=== PATIENT | female | born 1955 | race Caucasian/White ===

== ENCOUNTER 2020-04-12 13:39 | Outpatient (REF) | payer MEDICARE, SELFPAY ==
--- NOTE | 2020-04-12 | MM_ITS ---
EXAMINATION: BONE DENSITOMETRY CLINICAL INDICATION: Encounter for screening for osteoporosis. COMPARISON: Baseline BD dated 12/07/2008. TECHNIQUE: Using a [employer] DXA system (software version: 14.10) manufactured by [employer], dual-energy x-ray absorptiometry was performed of the lumbar spine and left hip. The images are of good technical quality. Summary results are attached. FINDINGS: AP SPINE L1-L2 (excluding L3 and L4): The data of L1-L4 has been changed to exclude the L3 and L4 vertebral bodies, because degenerative sclerosis at these levels may cause overestimation of lumbar spine density. Current: BMD 1.137 g/cm2, Z-score 0.9, T-score -0.2, normal, 3.3% decrease from baseline (<5% change is not significant). Baseline: BMD 1.176 g/cm2. LEFT FEMUR, NECK: Current: BMD 0.888 g/cm2, Z-score 0.1, T-score -1.1, osteopenia. Baseline: BMD 0.986 g/cm2. LEFT FEMUR, TOTAL: Current: BMD 1.007 g/cm2, Z-score 0.9, T-score 0.0, normal, 2.4% decrease from baseline (<5% change is not significant). Baseline: BMD 1.032 g/cm2. IDENTIFIED RISK FACTORS: Low calcium intake. Hysterectomy. Menopause. HISTORY OF FRACTURE: None listed. MEDICATIONS: Calcium supplement and/or multivitamin. Vitamin D. MM/XR DEXA axial skeleton IMPRESSION: 1. DIAGNOSIS: Osteopenia based on the lowest T-score value of -1.1 in the femoral neck applying World Health Organization criteria. 2. 10-YEAR FRACTURE RISK PREDICTION, FRAX: Major osteoporotic fracture (clinical spine, forearm, hip or shoulder) 8.1%. Hip fracture 0.7%. 3. Treatment Recommendations: NOF guidelines recommend consideration for treatment in postmenopausal women and men age 50 and older presenting with the following: -A hip or vertebral (clinical or morphometric) fracture. -T-score less than or equal to -2.5 at the femoral neck or spine after appropriate evaluation to exclude secondary causes. -Low bone mass at the hip or spine and a 10-year fracture probability by FRAX of greater than or equal to 3% for hip fracture or greater than or equal to 20% for major osteoporotic fracture based on the [place] adapted WHO algorithm. 4. Other Recommendations: All treatment decisions require clinical judgment and consideration of individual patient factors, including patient preferences, comorbidities, previous drug use, risk factors not captured in the FRAX model (e.g. frailty, falls, vitamin D deficiency, increased bone turnover, interval significant decline in bone density) and possible under or overestimation of fracture risk by FRAX. Additional medical evaluation for secondary cause of low bone mineral density may be appropriate. FUTURE SCAN RECOMMENDATION: People with diagnosed cases of osteoporosis or at high risk for fracture should have regular bone mineral density tests. For patients eligible for Medicare, routine testing is allowed once every 2 years. The testing frequency can be increased to one year for patients who have rapidly progressing disease, those who are receiving or discontinuing medical therapy to restore bone mass, or have additional risk factors.
== END 2020-04-12 13:40 | disposition home or self-care (01) ==
LOC: HO.MAMMO 13:39
PROVIDERS: Visit Provider Internal Medicine Medical Oncology
DX: Z13.820 Encounter for screening for osteoporosis (principal); M85.80 Other specified disorders of bone density and structure, unspecified site; Z78.0 Asymptomatic menopausal state; Z79.899 Other long term (current) drug therapy; Z98.890 Other specified postprocedural states
CPT/HCPCS: 77080

== ENCOUNTER 2020-04-19 16:43 | Outpatient (REF) | payer MEDICARE, SELFPAY ==
--- NOTE | 2020-04-19 | MM_ITS ---
EXAMINATION: MM SCREENING DIGITAL BREAST TOMOSYNTHESIS, BILATERAL CLINICAL INFORMATION: Screening. Asymptomatic. The lifetime risk of breast cancer based on the Tyrer-Cuzick Model is 12.8%. COMPARISON: Mammography: January 18, 2019 and studies dating back to October 21, 2010 TECHNIQUE: Digital breast tomosynthesis is performed in both the craniocaudal and mediolateral oblique views along with computer-aided detection (CAD). Synthesized 2D images are generated from the tomosynthesis. FINDINGS: The breasts are almost entirely fatty (ACR BI-RADS breast composition Category a). There are no significant masses, abnormal calcifications, or other abnormalities. MM/MM tomosynthesis screening BI IMPRESSION: There are no significant changes from prior study. ASSESSMENT: BI-RADS 1: Negative RECOMMENDATION: Routine annual mammography screening. This patient's information was entered into a reminder system with a target due date for their next mammogram.
== END 2020-04-19 16:44 | disposition home or self-care (01) ==
LOC: HO.MAMMO 16:43
PROVIDERS: PCP Family Medicine; Visit Provider Family Medicine
DX: Z12.31 Encounter for screening mammogram for malignant neoplasm of breast (principal)
CPT/HCPCS: 77063; 77067

== ENCOUNTER 2020-06-14 14:56 | Outpatient (REF) | payer MEDICARE, SELFPAY ==
[2020-06-14 15:50] LABS: Cholesterol 267 mg/dL; HDL Cholesterol 81 mg/dL; LDL Cholesterol Calculated 159 mg/dl; Triglycerides 139 mg/dL
== END 2020-06-14 14:57 | disposition home or self-care (01) ==
LOC: HO.LAB 14:56
PROVIDERS: PCP Family Medicine; Visit Provider Family Medicine
DX: E78.00 Pure hypercholesterolemia, unspecified (principal)
CPT/HCPCS: 80061

== ENCOUNTER 2020-06-18 12:25 | Outpatient (REF) | payer MEDICARE, SELFPAY ==
[2020-06-18 13:57] LABS: MANUAL DIFF FLAG NO
[2020-06-18 14:02] LABS: Basophils Percent Auto 0.4 % (0-2); Eosinophils Absolute Auto 0.1 X10*3/uL (0.0-0.4); Eosinophils Percent Auto 1.7 % (0-4); Hematocrit 43.5 % (37-47); Hemoglobin 14.2 g/dl (12.0-16.0); Imm Gran Abs Auto 0.01 X10*3/uL (0.00-0.03); Imm Gran Pct Auto 0.2 % (0.0-0.4); Lymphocytes Absolute Auto 1.8 X10*3/uL (1.2-4.9); Lymphocytes Percent Auto 33.2 % (20-40); Mean Corpuscular HGB Conc 32.6 g/dl (31.0-35.0); Mean Corpuscular Hemoglobin 32.6 pg (27.0-33.0); Mean Platelet Volume 9.3 fL (9.4-12.3); Monocytes Absolute Auto 0.5 X10*3/uL (0.1-1.2); Monocytes Percent Auto 9.8 % (2-11); Neutrophils Percent Auto 54.7 % (45-73); Platelet Count 227 X10*3/uL (160-400); Red Blood Count 4.35 X10*6/uL (4.20-5.50); Red Cell Distribution Width 11.8 % (11.0-16.0); White Blood Count 5.4 X10*3/uL (4.8-10.8)
[2020-06-18 14:37] LABS: Alanine Aminotransferase 27 U/L (0-31); Albumin Level 4.7 g/dL (3.5-5.0); Alkaline Phosphatase 77 U/L (39-117); Anion Gap 14 (12-20); Aspartate Amino Transferase 23 U/L (5-31); Bilirubin Total 1.5 mg/dL (0.0-1.0); Blood Urea Nitrogen 13 mg/dL (9-16); C Reactive Protein 0.33 mg/dL (< or = 0.50); Calcium 9.5 mg/dL (8.4-10.2); Carbon Dioxide 29 mmol/L (22-29); Chloride 103 mmol/L (96-108); Cholesterol 300 mg/dL; Estimated Glomerular Filt Rate > 60; Glucose Random 89 mg/dL (60-115); HDL Cholesterol 82 mg/dL; LDL Cholesterol Calculated 190 mg/dl; Potassium 4.3 mmol/l (3.3-5.1); Sodium 142 mmol/L (135-145); Total Protein 7.4 g/dL (6.5-8.0); Triglycerides 140 mg/dL
[2020-06-18 14:58] LABS: TSH reflex Free T4 1.31 mIU/mL (0.32-4.0)
[2020-06-18 15:58] LABS: Erythrocyte Sedimentation Rate 16 MM/HR (0-20)
== END 2020-06-18 12:26 | disposition home or self-care (01) ==
LOC: HO.WFDLDS 12:25
PROVIDERS: Visit Provider Family Medicine
DX: R53.83 Other fatigue (principal); Z00.00 Encounter for general adult medical examination without abnormal findings
CPT/HCPCS: 36415; 80053; 80061; 84443; 85025; 85652; 86140

== ENCOUNTER 2020-10-09 07:55 | Outpatient (REF) | payer MEDICARE, SELFPAY ==
--- NOTE | ~2020-10-09 | XR_ITS ---
EXAMINATION: 1. STANDING AP VIEWS OF THE BILATERAL KNEES 2. 2 VIEWS OF THE LEFT KNEE CLINICAL INFORMATION: Bilateral knee pain COMPARISON: Bilateral knee radiographs March 11, 2021 TECHNIQUE: Standing AP views of both knees were obtained. 2 additional views of the left knee were obtained. FINDINGS: No fracture or dislocation of the left knee. There is a small suprapatellar joint effusion of the left knee. Mildly decreased medial joint space height of the left knee. Tricompartmental marginal osteophytes of the left knee are noted. Medial and lateral joint spaces of the right knee are maintained although prominent osteophytes are noted involving primarily the lateral right knee joint compartment. XR/XR knee standing BI IMPRESSION: -Small suprapatellar joint effusion of the left knee. -[id number] degenerative changes of the left knee with only mild degenerative changes of the right knee.
--- NOTE | ~2020-10-09 | XR_ITS ---
EXAMINATION: 1. STANDING AP VIEWS OF THE BILATERAL KNEES 2. 2 VIEWS OF THE LEFT KNEE CLINICAL INFORMATION: Bilateral knee pain COMPARISON: Bilateral knee radiographs March 11, 2021 TECHNIQUE: Standing AP views of both knees were obtained. 2 additional views of the left knee were obtained. FINDINGS: No fracture or dislocation of the left knee. There is a small suprapatellar joint effusion of the left knee. Mildly decreased medial joint space height of the left knee. Tricompartmental marginal osteophytes of the left knee are noted. Medial and lateral joint spaces of the right knee are maintained although prominent osteophytes are noted involving primarily the lateral right knee joint compartment. XR/XR knee LT 2V IMPRESSION: -Small suprapatellar joint effusion of the left knee. -[id number]-[id number] degenerative changes of the left knee with only mild degenerative changes of the right knee.
== END 2020-10-09 07:56 | disposition home or self-care (01) ==
LOC: HO.HOSX 07:55
PROVIDERS: Visit Provider Orthopaedic Surgery
DX: M17.12 Unilateral primary osteoarthritis, left knee (principal); M17.11 Unilateral primary osteoarthritis, right knee
CPT/HCPCS: 20610; 73560; 73565; 99212; J1040

== ENCOUNTER 2021-02-21 10:00 | Outpatient (REF) | payer MEDICARE, SELFPAY ==
[2021-02-21 11:40] LABS: Alanine Aminotransferase 23 U/L (0-31); Albumin Level 4.3 g/dL (3.5-5.0); Alkaline Phosphatase 74 U/L (39-117); Anion Gap 12 (12-20); Aspartate Amino Transferase 19 U/L (5-31); Bilirubin Total 1.5 mg/dL (0.0-1.0); Blood Urea Nitrogen 12 mg/dL (9-16); Calcium 9.3 mg/dL (8.4-10.2); Carbon Dioxide 29 mmol/L (22-29); Chloride 105 mmol/L (96-108); Cholesterol 250 mg/dL; Estimated Glomerular Filt Rate > 60; Glucose Fasting 90 mg/dL (60-99); HDL Cholesterol 76 mg/dL; LDL Cholesterol Calculated 157 mg/dl; Potassium 4.5 mmol/L (3.3-5.1); Sodium 141 mmol/L (135-145); Total Protein 6.8 g/dL (6.5-8.0); Triglycerides 89 mg/dL
[2021-02-21 12:05] LABS: Ferritin 138 ng/mL (10-250)
== END 2021-02-21 10:01 | disposition home or self-care (01) ==
LOC: HO.WFDLDS 10:00
PROVIDERS: PCP Family Medicine; Visit Provider Family Medicine
DX: Z00.00 Encounter for general adult medical examination without abnormal findings (principal); M62.838 Other muscle spasm
CPT/HCPCS: 36415; 80053; 80061; 82728

== ENCOUNTER 2021-06-17 10:18 | Outpatient (REF) | payer MEDICARE, SELFPAY ==
[2021-06-17 14:00] LABS: MANUAL DIFF FLAG NO
[2021-06-17 14:08] LABS: Basophils Percent Auto 0.6 % (0-2); Eosinophils Absolute Auto 0.2 X10*3/uL (0.0-0.4); Eosinophils Percent Auto 3.8 % (0-4); Hematocrit 42.3 % (37.0-47.0); Hemoglobin 14.3 g/dl (12.0-16.0); Imm Gran Abs Auto 0.01 X10*3/uL (0.00-0.03); Imm Gran Pct Auto 0.2 % (0.0-0.4); Lymphocytes Absolute Auto 1.6 X10*3/uL (1.2-4.9); Lymphocytes Percent Auto 32.5 % (20-40); Mean Corpuscular HGB Conc 33.8 g/dl (31.0-35.0); Mean Corpuscular Hemoglobin 32.8 pg (27.0-33.0); Mean Platelet Volume 9.7 fL (9.4-12.3); Monocytes Absolute Auto 0.6 X10*3/uL (0.1-1.2); Neutrophils Absolute Auto 2.6 x10*3/uL (2.0-8.3); Neutrophils Percent Auto 51.9 % (45-73); Platelet Count 222 X10*3/uL (160-400); Red Blood Count 4.36 X10*6/uL (4.20-5.50); Red Cell Distribution Width 11.9 % (11.0-16.0)
[2021-06-17 14:34] LABS: Alanine Aminotransferase 28 U/L (0-31); Albumin Level 4.4 g/dL (3.5-5.0); Alkaline Phosphatase 76 U/L (39-117); Anion Gap 11 (12-20); Aspartate Amino Transferase 22 U/L (5-31); Blood Urea Nitrogen 13 mg/dL (9-16); C Reactive Protein 0.19 mg/dL (< or = 0.50); Calcium 9.8 mg/dL (8.4-10.2); Carbon Dioxide 29 mmol/L (22-29); Chloride 104 mmol/L (96-108); Cholesterol 289 mg/dL; Estimated Glomerular Filt Rate > 60; Glucose Fasting 90 mg/dL (60-99); HDL Cholesterol 80 mg/dL; LDL Cholesterol Calculated 183 mg/dl; Potassium 4.4 mmol/L (3.3-5.1); Sodium 140 mmol/L (135-145); Total Protein 7.2 g/dL (6.5-8.0); Triglycerides 132 mg/dL
[2021-06-17 14:41] LABS: Rheumatoid Factor < 15.0 IU/mL (<15.0)
[2021-06-17 14:54] LABS: TSH reflex Free T4 1.69 uIU/mL (0.32-4.0); Vitamin D 25-OH Total 27.4 ng/mL (>30)
[2021-06-17 15:22] LABS: Erythrocyte Sedimentation Rate 12 MM/HR (0-20)
[2021-06-18 21:57] LABS: Anti Nuclear Antibody Screen POSITIVE (NEGATIVE)
== END 2021-06-17 10:19 | disposition home or self-care (01) ==
LOC: HO.WFDLDS 10:18
PROVIDERS: Visit Provider Family Medicine
DX: Z00.00 Encounter for general adult medical examination without abnormal findings (principal); R53.83 Other fatigue; E78.00 Pure hypercholesterolemia, unspecified; M62.838 Other muscle spasm; M79.10 Myalgia, unspecified site; E55.9 Vitamin D deficiency, unspecified; M25.561 Pain in right knee; M25.562 Pain in left knee
CPT/HCPCS: 36415; 80053; 80061; 82306; 84443; 85025; 85652; 86038; 86039; 86140; 86431

== ENCOUNTER 2021-08-14 09:45 | Outpatient (REF) | payer MEDICARE, SELFPAY ==
[2021-08-15 08:36] LABS: Lyme Abs Screen <0.90 index
== END 2021-08-14 09:46 | disposition home or self-care (01) ==
LOC: HO.WFDLDS 09:45
PROVIDERS: Visit Provider Family Medicine
DX: M79.10 Myalgia, unspecified site (principal)
CPT/HCPCS: 36415; 86617; 86618

== ENCOUNTER 2021-09-11 15:01 | Outpatient (REF) | payer MEDICARE, SELFPAY ==
--- NOTE | ~2021-09-11 | MM_ITS ---
EXAMINATION: MM SCREENING DIGITAL BREAST TOMOSYNTHESIS, BILATERAL CLINICAL INFORMATION: Screening. Asymptomatic. The lifetime risk of breast cancer based on the Tyrer-Cuzick Model is 13%. COMPARISON: Mammography: 04/19/2020, 01/18/2019, 12/10/2016 TECHNIQUE: Digital breast tomosynthesis is performed in both the craniocaudal and mediolateral oblique views along with computer-aided detection (CAD). Synthesized 2D images are generated from the tomosynthesis. FINDINGS: The breasts are almost entirely fatty (ACR BI-RADS breast composition Category a). There are no significant masses, abnormal calcifications, or other abnormalities. Background stromal and fibroglandular densities are stable. The axilla and skin contours are unremarkable. MM/MM tomosynthesis screening BI IMPRESSION: No mammographic evidence of malignancy. ASSESSMENT: BI-RADS 1: Negative RECOMMENDATION: Routine annual mammography screening. This patient's information was entered into a reminder system with a target due date for their next mammogram.
== END 2021-09-11 15:02 | disposition home or self-care (01) ==
LOC: HO.MAMMO 15:01
PROVIDERS: Visit Provider Family Medicine
DX: Z12.31 Encounter for screening mammogram for malignant neoplasm of breast (principal)
CPT/HCPCS: 77063; 77067

== ENCOUNTER 2021-10-18 11:38 | Outpatient (REF) | payer MEDICARE, SELFPAY ==
--- NOTE | ~2021-10-18 | XR_ITS ---
EXAMINATION: XR CHEST CLINICAL INFORMATION: Cough COMPARISON: Previous chest x-ray July 2017 TECHNIQUE: 2 views of the chest were obtained. FINDINGS: The cardiac and mediastinal contours are stable. The lungs are clear. There is no pleural effusion or pneumothorax. There are degenerative changes of the spine. XR/XR chest 2V IMPRESSION: No evidence for acute disease in the chest.
[2021-10-18 14:53] LABS: Influenza A PCR NEGATIVE (Negative); Influenza B PCR NEGATIVE (Negative); Resp Syncy Virus RNA Qual PCR NEGATIVE (Negative); SARS COV2 PCR INHOUSE NEGATIVE (Negative)
== END 2021-10-18 11:39 | disposition home or self-care (01) ==
LOC: HO.XRAY 11:38
PROVIDERS: PCP Family Medicine; Visit Provider Family Medicine
DX: Z20.822 Contact with and (suspected) exposure to COVID-19 (principal); R05.9 Cough, unspecified; R09.89 Other specified symptoms and signs involving the circulatory and respiratory systems
CPT/HCPCS: 0241U; 71046

== ENCOUNTER 2022-02-19 10:25 | Outpatient (REF) | payer MEDICARE, SELFPAY ==
[2022-02-19 12:04] LABS: Alanine Aminotransferase 23 U/L (0-31); Albumin Level 4.4 g/dL (3.5-5.0); Alkaline Phosphatase 76 U/L (39-117); Anion Gap 16 (12-20); Aspartate Amino Transferase 21 U/L (5-31); Bilirubin Total 1.2 mg/dL (0.0-1.0); Blood Urea Nitrogen 11 mg/dL (9-16); Calcium 9.5 mg/dL (8.4-10.2); Carbon Dioxide 27 mmol/L (22-29); Chloride 103 mmol/L (96-108); Cholesterol 276 mg/dL; Estimated Glomerular Filt Rate > 60; Glucose Random 89 mg/dL (60-115); HDL Cholesterol 82 mg/dL; LDL Cholesterol Calculated 173 mg/dl; Potassium 4.1 mmol/L (3.3-5.1); Sodium 142 mmol/L (135-145); Total Protein 7.1 g/dL (6.5-8.0); Triglycerides 107 mg/dL
== END 2022-02-19 10:26 | disposition home or self-care (01) ==
LOC: HO.WFDLDS 10:25
PROVIDERS: Visit Provider Family Medicine
DX: Z00.00 Encounter for general adult medical examination without abnormal findings (principal); E78.00 Pure hypercholesterolemia, unspecified
CPT/HCPCS: 36415; 80053; 80061

== ENCOUNTER 2022-04-16 08:59 | Outpatient (REF) | payer MEDICARE, SELFPAY ==
--- NOTE | ~2022-04-16 | MM_ITS ---
EXAMINATION: BONE DENSITOMETRY CLINICAL INDICATION: Screening for osteoporosis. COMPARISON: Previous BD dated 04/12/2020 and baseline BD dated 12/07/2008. TECHNIQUE: Using a [employer] DXA System (software version: 13.1) manufactured by [employer], dual-energy x-ray absorptiometry was performed of the lumbar spine and left hip. The images are of good technical quality. Summary results are attached. FINDINGS: AP SPINE L1-L4: Current: BMD 1.308 g/cm2, Z-score 2.1, T-score 1.1, normal, 0.2% increase from previous, 3.1% increase from baseline (<5% change is not significant). Prior: BMD 1.306 g/cm2. Baseline: BMD 1.269 g/cm2. LEFT FEMUR, NECK: Current: BMD 0.814 g/cm2, Z-score -0.4, T-score -1.6, osteopenia. Prior: BMD 0.888 g/cm2. Baseline: BMD 0.986 g/cm2. LEFT FEMUR, TOTAL: Current: BMD 0.882 g/cm2, Z-score -0.1, T-score -1.0, normal, 12.4% decrease from previous, 14.5% decrease from baseline (<5% change is not significant). Prior: BMD 1.007 g/cm2. Baseline: BMD 1.032 g/cm2. IDENTIFIED RISK FACTORS: Menopause, low calcium intake, hysterectomy, osteoporosis. HISTORY OF FRACTURE: None listed. MEDICATIONS: Vitamin D. MM/XR DEXA axial skeleton IMPRESSION: 1. DIAGNOSIS: Osteopenia based on the lowest T-score value of -1.6 in the femoral neck applying World Health Organization criteria. 2. 10-YEAR FRACTURE RISK PREDICTION, FRAX: Major osteoporotic fracture (clinical spine, forearm, hip or shoulder) 9.5%. Hip fracture 1.3%. 3. Treatment Recommendations: NOF guidelines recommend consideration for treatment in postmenopausal women and men age 50 and older presenting with the following: -A hip or vertebral (clinical or morphometric) fracture. -T-score less than or equal to -2.5 at the femoral neck or spine after appropriate evaluation to exclude secondary causes. -Low bone mass at the hip or spine and a 10-year fracture probability by FRAX of greater than or equal to 3% for hip fracture or greater than or equal to 20% for major osteoporotic fracture based on the [place] adapted WHO algorithm. 4. Other Recommendations: All treatment decisions require clinical judgment and consideration of individual patient factors, including patient preferences, comorbidities, previous drug use, risk factors not captured in the FRAX model (e.g. frailty, falls, vitamin D deficiency, increased bone turnover, interval significant decline in bone density) and possible under or overestimation of fracture risk by FRAX. Additional medical evaluation for secondary cause of low bone mineral density may be appropriate. FUTURE SCAN RECOMMENDATION: People with diagnosed cases of osteoporosis or at high risk for fracture should have regular bone mineral density tests. For patients eligible for Medicare, routine testing is allowed once every 2 years. The testing frequency can be increased to one year for patients who have rapidly progressing disease, those who are receiving or discontinuing medical therapy to restore bone mass, or have additional risk factors.
== END 2022-04-16 09:00 | disposition home or self-care (01) ==
LOC: HO.MAMMO 08:59
PROVIDERS: PCP Family Medicine; Visit Provider Family Medicine
DX: Z13.820 Encounter for screening for osteoporosis (principal); Z78.0 Asymptomatic menopausal state
CPT/HCPCS: 77080

== ENCOUNTER 2022-08-27 12:48 | Outpatient (REF) | payer MEDICARE, SELFPAY ==
--- NOTE | ~2022-08-27 | XR_ITS ---
EXAMINATION: XR CHEST CLINICAL INFORMATION: TB COMPARISON: 10/18/2021 TECHNIQUE: 2 views of the chest were obtained. FINDINGS: Clear lungs. No effusion or pneumothorax. Cardiomediastinal silhouette is within normal limits. No radiographic findings of tuberculosis. XR/XR chest 2V IMPRESSION: No radiographic findings of tuberculosis.
== END 2022-08-27 12:49 | disposition home or self-care (01) ==
LOC: HO.XRAY 12:48
PROVIDERS: PCP Family Medicine; Visit Provider Family Medicine
DX: Z11.1 Encounter for screening for respiratory tuberculosis (principal)
CPT/HCPCS: 71046

== ENCOUNTER 2022-10-20 14:57 | Outpatient (REF) | payer MEDICARE, SELFPAY ==
--- NOTE | ~2022-10-20 | MM_ITS ---
EXAMINATION: MM SCREENING DIGITAL BREAST TOMOSYNTHESIS, BILATERAL CLINICAL INFORMATION: Screening. Asymptomatic. Family history breast cancer, mother. The lifetime risk of breast cancer based on the Tyrer-Cuzick Model is 13%. COMPARISON: Mammography: 09/11/2021, 04/19/2020, 01/18/2019 TECHNIQUE: Digital breast tomosynthesis is performed in both the craniocaudal and mediolateral oblique views along with computer-aided detection (CAD). Synthesized 2D images are generated from the tomosynthesis. FINDINGS: The breasts are almost entirely fatty (ACR BI-RADS breast composition Category a). Parenchymal pattern is similar to prior studies. There is no developing density or architectural abnormality. The axilla and skin contours are unremarkable. No significant changes. There are no significant masses, abnormal calcifications, or other abnormalities. MM/MM tomosynthesis screening BI IMPRESSION: No mammographic evidence of malignancy. ASSESSMENT: BI-RADS 1: Negative RECOMMENDATION: Routine annual mammography screening. This patient's information was entered into a reminder system with a target due date for their next mammogram.
== END 2022-10-20 14:58 | disposition home or self-care (01) ==
LOC: HO.MAMMO 14:57
PROVIDERS: PCP Family Medicine; Visit Provider Family Medicine
DX: Z12.31 Encounter for screening mammogram for malignant neoplasm of breast (principal)
CPT/HCPCS: 77063; 77067

== ENCOUNTER 2022-10-21 14:00 | Outpatient (RCR) | payer MEDICARE, SELFPAY | END 2022-11-13 08:45 | disposition home or self-care (01) | LOC: HO.PT 14:00 | PROVIDERS: PCP Family Medicine; Visit Provider Internal Medicine Rheumatology | DX: M17.0 Bilateral primary osteoarthritis of knee (principal) | CPT/HCPCS: 97110; 97140; 97161 ==

== ENCOUNTER 2022-12-12 06:22 | Day surgery (SDC) | payer MEDICARE, SELFPAY ==
--- NOTE | 2022-12-11 11:44 | HO.ANESPROP2 ---
Documented by User: Yue Jeong NP 12/11/22 11:44 HPI - Anesthesia Eval Consult details Narrative: 67yo F for Colonoscopy PMFSH Active Problems Active Problems: All Active Problems (Updated 11/26/22 @ 11:13 by Nabeel Rodriguez) Hypertension (Acute) Screening examination for pulmonary tuberculosis (Acute) Abnormal lung sounds (Acute) Cough (Acute) Decreased hearing (Acute) Breast cancer screening by mammogram (Acute) Screening for colon cancer (Acute) Screening for cervical cancer (Acute) Adult general medical exam (Acute) Muscle pain (Acute) Elevated blood pressure reading (Acute) Bilateral knee pain (Acute) Muscle spasms of both lower extremities (Acute) Left knee pain (Acute) Primary osteoarthritis of left knee (Acute) Osteopenia (Acute) Hypercholesterolemia (Acute) Hamstring muscle strain (Acute) Fatigue (Acute) History of COVID-19 (Acute) Past Medical History Medical History (Updated 12/12/22 @ 06:58 by Meena Samaniego RN) Elevated cholesterol Fibromyalgia Osteoarthritis Surgical History Surgical History (Updated 12/12/22 @ 07:01 by Meena Samaniego RN) History of bladder surgery History of ear surgery History of knee surgery History of partial hysterectomy Hx of colonoscopy Social History Social History Housing: House Alcohol intake: current Alcohol intake frequency: holidays/special occasions only Patient Tobacco Use Status: Never used Tobacco e-Cigarette/Vaping Use: Never Used Second Hand Smoke Exposure: No Use of substances other than those prescribed or required for medical reasons: No Are you DNR?: No Advance Directives: No Advance Directives Information Provided: Yes service: No Current occupational status: 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 Cognitive needs: No Hearing needs: Yes (hearing aide) Vision needs: Yes (glasses) Meds Allergies Allergy/AdvReac Type Severity Reaction Status Date / Time Penicillins Allergy Mild UNKNOWN Verified 12/12/22 07:01 procaine [From Novocain] Allergy Mild HIVES/SWELL Verified 12/12/22 07:01 ING penicillin V Allergy Unknown Hives, Verified 12/12/22 07:01 swelling,fainting lidocaine [From Xylocaine] Allergy Unconscious Verified 12/12/22 07:03 Novocaine Allergy Mild Unconscious Uncoded 12/12/22 07:03 Home Medications Medication Instructions Recorded Confirmed Last Taken Type vitamin B complex (Super B-50 1 cap PO DAILY 06/18/20 12/12/22 Unknown History Complex capsule) glucosamine sulfate 500 mg tablet 500 mg PO DAILY 12/24/20 12/12/22 Unknown History (Glucosamine) meloxicam 7.5 mg tablet 7.5 mg PO DAILY 10/18/21 12/12/22 Unknown History cholecalciferol (vitamin D3) 10 10 mcg PO DAILY 11/26/22 12/12/22 Unknown History mcg (400 unit) capsule magnesium 200 mg tablet 400 mg PO DAILY 11/26/22 12/12/22 Unknown History sodium hyaluronate (viscosup) 10 mg intra-articular 12/12/22 12/12/22 Unknown History mg/mL(mw 2.4-3.6 million)intra-articular syringe (Euflexxa) Exam Exam Date and Time: December 11, 2022 1144 Assessment and Plan Assessment Anesthesia Assessment: Chart Reviewed Documented by User: Jany Gaston MD 12/12/22 08:04 [facility] Past Medical History Medical History (Updated 12/12/22 @ 06:58 by Meena Samaniego RN) Elevated cholesterol Fibromyalgia Osteoarthritis Family History Family history of problems with anesthesia: No Surgical History Surgical History (Updated 12/12/22 @ 07:01 by Meena Samaniego RN) History of bladder surgery History of ear surgery History of knee surgery History of partial hysterectomy Hx of colonoscopy History of Problems with Anesthesia: No Social History Social History Housing: House Alcohol intake: current Alcohol intake frequency: holidays/special occasions only Patient Tobacco Use Status: Never used Tobacco e-Cigarette/Vaping Use: Never Used Second Hand Smoke Exposure: No Use of substances other than those prescribed or required for medical reasons: No Are you DNR?: No Advance Directives: No Advance Directives Information Provided: Yes service: No Current occupational status: 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 Cognitive needs: No Hearing needs: Yes (hearing aide) Vision needs: Yes (glasses) Meds Allergies Allergy/AdvReac Type Severity Reaction Status Date / Time Penicillins Allergy Mild UNKNOWN Verified 12/12/22 07:01 procaine [From Novocain] Allergy Mild HIVES/SWELL Verified 12/12/22 07:01 ING penicillin V Allergy Unknown Hives, Verified 12/12/22 07:01 swelling,fainting lidocaine [From Xylocaine] Allergy Unconscious Verified 12/12/22 07:03 Novocaine Allergy Mild Unconscious Uncoded 12/12/22 07:03 Home Medications Medication Instructions Recorded Confirmed Last Taken Type vitamin B complex (Super B-50 1 cap PO DAILY 06/18/20 12/12/22 Unknown History Complex capsule) glucosamine sulfate 500 mg tablet 500 mg PO DAILY 12/24/20 12/12/22 Unknown History (Glucosamine) meloxicam 7.5 mg tablet 7.5 mg PO DAILY 10/18/21 12/12/22 Unknown History cholecalciferol (vitamin D3) 10 10 mcg PO DAILY 11/26/22 12/12/22 Unknown History mcg (400 unit) capsule magnesium 200 mg tablet 400 mg PO DAILY 11/26/22 12/12/22 Unknown History sodium hyaluronate (viscosup) 10 mg intra-articular 12/12/22 12/12/22 Unknown History mg/mL(mw 2.4-3.6 million)intra-articular syringe (Euflexxa) Exam Airway Mallampati Class: I TM Dist: >3cm Neck ROM: Full Loose/Missing/Broken Teeth: No Heart: rr Lungs: cta Assessment and Plan Assessment Anesthesia Assessment: Anesthesia Plan Discussed Final Anesthetic Review Family History of Problems with Anesthesia: No History of Problems with Anesthesia: No NPO: Yes ASA Class: II Final Preanesthetic Review: No Changes in Pt Med Stat, Meds/Allgs Chart Reviewed, Consent Obtained/Reviewed and Anes Risks/Benef Reviewed Patient Risk: Low Procedure Risk: Low Anesthetic Plan Anesthetic Plan: MAC: Disposition: Standard PACU
[2022-12-12 06:55] VITALS: BMI 29.6
[2022-12-12 07:14] VITALS: BP 125/73; PULSE 64; RESP 15; TEMP 36.7; O2SAT 97
[2022-12-12] MEDS: Lactated Ringers 1,000 ML 100 ML IVCONT (07:14)
--- NOTE | 2022-12-12 08:38 | P.BOP_ITS ---
Brief Operative Note Date of Service: 12/12/22 Pre-op diagnosis: Screening Post-op diagnosis: other (Polyps) Procedure: Colonoscopy to the cecum with cold snare polypectomy of TC polyp and bx/removal of rectal polyp Surgeon: Cesar Kohler Anesthesia: MAC Was an Senior Graphic Designer used for this Procedure?: No Estimated blood loss (mL): 2.0 Pathology: other (A. Transverse colon polyp B. Rectal polyp) Condition: stable Disposition: PACU
[2022-12-12 08:39] VITALS: BP 97/61; PULSE 67; RESP 16; TEMP 36.2; O2SAT 97
[2022-12-12 09:01] VITALS: BP 124/75; PULSE 53; RESP 18; TEMP 36.7; O2SAT 97
--- NOTE | 2023-01-05 12:57 | OP_ITS ---
DATE OF SERVICE: 12/12/2022 SURGEON: Cesar Kohler MD INDICATIONS: The patient presents for evaluation of colorectal cancer screening and personal history of tubular adenomas of the colon. Full consent was obtained from her for this, including risks of bleeding and perforation. PREOPERATIVE DIAGNOSIS: Colorectal cancer screening and personal history of tubular adenoma of the colon. POSTOPERATIVE DIAGNOSIS: PROCEDURE PERFORMED: Colonoscopy to cecum with cold snare polypectomy, and biopsy removal of polyp. ESTIMATED BLOOD LOSS: COMPLICATIONS: ANESTHESIA: Monitored anesthesia care. ASSISTANTS: SPECIMENS: POSTOPERATIVE DIAGNOSES: Colorectal cancer screening and personal history of tubular adenoma of the colon. Colon polyps, diverticulosis, and internal hemorrhoids. DESCRIPTION OF PROCEDURE: The patient was placed in the left lateral decubitus position. The digital rectal exam revealed no abnormalities. The Olympus video pediatric colonoscope was entered into the rectum and advanced easily to the cecum. Once in the cecum, I did identify a normal-appearing cecal pouch with appendiceal orifice and a normal-appearing ileocecal valve. The entire cecum and ileocecal valve appeared normal. The scope was slowly withdrawn assessing all mucosal surfaces carefully. Preparation was excellent. In the transverse colon was an approximately 5 or 6 mm flat polyp, which was removed by cold snare polypectomy and recovered by suction. The polypectomy site appeared to be free of any residual polyp tissue and no significant bleeding. In the proximal rectum was a 3 mm polyp, which was removed by cold biopsy forceps completely. I did not visualize any other polyps, colitis, nor angiodysplasia. There was a mild amount of sigmoid diverticulosis. At approximately 20 cm, I was able to visualize the anastomosis from her previous surgery. In the rectum, scope was retroflexed visualizing internal hemorrhoids, but no other pathology. The rectal mucosa appeared normal. The scope was straightened and withdrawn from the patient. She tolerated the procedure well and was returned to recovery area in stable condition. IMPRESSION: 1. Colon polyps. 2. Diverticulosis. 3. Internal hemorrhoids. PLAN: The results of biopsy will be checked. I would recommend a repeat colonoscopy in 5 years. She was advised not to use any aspirin or NSAIDs for 1 week. MD REMIGIO Cortes/NIKL / [id number]
== END 2022-12-12 09:39 | disposition home or self-care (01) ==
PROVIDERS: PCP Family Medicine; Visit Provider Internal Medicine
PROC: 0DJD8ZZ Inspection of Lower Intestinal Tract, Via Natural or Artificial Opening Endoscopic (ICD-10-PCS; CPT 45378; principal; 2022-12-12 07:30)
DX: Z12.11 Encounter for screening for malignant neoplasm of colon (principal); Z86.010 Personal history of colon polyps; D12.3 Benign neoplasm of transverse colon; D12.8 Benign neoplasm of rectum; K57.30 Diverticulosis of large intestine without perforation or abscess without bleeding; K64.8 Other hemorrhoids; K59.00 Constipation, unspecified; I10 Essential (primary) hypertension; E78.00 Pure hypercholesterolemia, unspecified; M79.7 Fibromyalgia; Z90.49 Acquired absence of other specified parts of digestive tract; Z98.0 Intestinal bypass and anastomosis status; Z79.899 Other long term (current) drug therapy; Z88.0 Allergy status to penicillin; Z88.8 Allergy status to other drugs, medicaments and biological substances; Z86.16 Personal history of COVID-19
CPT/HCPCS: 45385; 45380; 88305

== ENCOUNTER 2023-01-01 06:53 | Outpatient (REF) | payer MEDICARE, SELFPAY ==
[2023-01-01 07:02] LABS: MANUAL DIFF FLAG NO
[2023-01-01 09:25] LABS: Basophils Percent Auto 0.6 % (0-2); Eosinophils Absolute Auto 0.2 X10*3/uL (0.0-0.4); Eosinophils Percent Auto 3.8 % (0-4); Hematocrit 43.1 % (37.0-47.0); Imm Gran Abs Auto 0.01 X10*3/uL (0.00-0.03); Imm Gran Pct Auto 0.2 % (0.0-0.4); Lymphocytes Absolute Auto 1.9 X10*3/uL (1.2-4.9); Lymphocytes Percent Auto 37.5 % (20-40); Mean Corpuscular HGB Conc 32.5 g/dl (31.0-35.0); Mean Corpuscular Hemoglobin 32.3 pg (27.0-33.0); Mean Corpuscular Volume 99.3 fL (80.0-98.0); Mean Platelet Volume 9.6 fL (9.4-12.3); Monocytes Absolute Auto 0.6 X10*3/uL (0.1-1.2); Monocytes Percent Auto 11.9 % (2-11); Neutrophils Absolute Auto 2.3 x10*3/uL (2.0-8.3); Platelet Count 215 X10*3/uL (160-400); Red Blood Count 4.34 X10*6/uL (4.20-5.50); Red Cell Distribution Width 11.9 % (11.0-16.0); White Blood Count 5.1 X10*3/uL (4.8-10.8)
[2023-01-01 09:39] LABS: Appearance Urine Clear; Color Urine Yellow; Glucose Urine UA Negative (Negative); Leukocyte Esterase Urine Trace (Negative); Nitrite Urine Negative (Negative); Specific Gravity - Urine <= 1.005 (1.005-1.025); UMIC TRIGGER UA YES; Urine Blood Negative (Negative); Urine Ketones Negative (Negative); Urine Protein Negative (Neg-Trace)
[2023-01-01 09:42] LABS: Alanine Aminotransferase 21 U/L (0-31); Albumin Level 4.2 g/dL (3.5-5.0); Alkaline Phosphatase 73 U/L (39-117); Anion Gap 14 (12-20); Aspartate Amino Transferase 19 U/L (5-31); Bilirubin Total 0.8 mg/dL (0.0-1.0); Blood Urea Nitrogen 15 mg/dL (9-16); Calcium 9.6 mg/dL (8.4-10.2); Carbon Dioxide 27 mmol/L (22-29); Chloride 104 mmol/L (96-108); Cholesterol 267 mg/dL; Estimated Glomerular Filt Rate > 60; Glucose Fasting 81 mg/dL (60-99); HDL Cholesterol 76 mg/dL; LDL Cholesterol Calculated 176 mg/dl; Sodium 141 mmol/L (135-145); Total Protein 7.1 g/dL (6.5-8.0); Triglycerides 76 mg/dL
[2023-01-01 09:45] LABS: Bacteria Urine None Seen (None Seen); Hyaline Casts Urine 0-2 /LPF (0-2); RBC Urine 0-2 /HPF (0-2); Squamous Epithelial Cell Urine 0-2 /HPF (0-2); WBC Urine 0-5 /HPF (0-5)
[2023-01-01 10:05] LABS: TSH reflex Free T4 2.38 uIU/mL (0.32-4.0)
[2023-01-01 11:17] LABS: Creatinine Urine 17.15 mg/dL; Microalbumin Urine < 5.0 mg/L
== END 2023-01-01 06:54 | disposition home or self-care (01) ==
LOC: HO.LAB 06:53
PROVIDERS: PCP Family Medicine; Visit Provider Family Medicine
DX: Z00.00 Encounter for general adult medical examination without abnormal findings (principal); I10 Essential (primary) hypertension
CPT/HCPCS: 36415; 80053; 80061; 81001; 82043; 84443; 85025

== ENCOUNTER 2023-02-02 14:06 | Outpatient (AMB) | payer MEDICARE, SELFPAY ==
--- NOTE | 2023-02-02 14:11 | MHC.PC.OV ---
Vital Signs 02/02/23 14:12 Height 5 ft 5 in Weight 182 lb 6 oz BMI 30.3 BP 120/70 Blood Pressure Location Lt brachial Position Sitting Pulse 76 Pulse Source Pulse Oximeter Pulse Oximetry (%) 96 Oxygen Delivery Method Room Air Intake Visit Reasons: Extended exam with f/u labs and health maintenance Intake Note: Patient is here for physical today. She is follwing up on her labs, also. Allergies Penicillins Allergy (Mild, Verified 02/02/23 14:15) UNKNOWN procaine [From Novocain] Allergy (Mild, Verified 02/02/23 14:15) HIVES/SWELLING penicillin V Allergy (Unknown, Verified 02/02/23 14:15) Hives, swelling,fainting lidocaine [From Xylocaine] Allergy (Verified 02/02/23 14:15) Unconscious Novocaine Allergy (Mild, Uncoded 02/02/23 14:15) Unconscious Tobacco use date assessed: 02/02/23 Fall risk assessment: 1 Fall in past year Last assessed Fall Risk: 02/02/23 Dental Screening Dental Screen Date: 02/02/23 Did you have a dental visit in the last 12 months?: Yes Did you have a dental problem in the last 6 months where you did not have access to dental care?: No Was dental information given to patient?: Patient has dentist HPI Extended exam with f/u labs and health maintenance HPI Details 67 y/o female presents for an extended exam with f/u labs and health maintenance. Labs were drawn 01/01/23. Reviewed labs with pt. Triglycerides 76. TC 267. LDL 176. HDL 76. Pt reports hearing changes. She reports last colonoscopy was in November with Dr. Kohler. She reports they had wanted to see her back in 5 years. She is no longer getting pap smears. 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 1. Little interest or pleasure in doing things: several days 2. Feeling down, depressed, or hopeless: not at all 3. Trouble falling or staying asleep, or sleeping too much: several days 4. Feeling tired or having little energy: nearly every day 5. Poor appetite or overeating: not at all 6. Feeling bad about yourself - or that you are a failure or have let yourself or your family down: not at all 7. Trouble concentrating on things, such as reading the newspaper or watching television: not at all 8. Moving or speaking so slowly that other people could have noticed. Or the opposite - being so fidgety or restless that you have been moving around a lot more than usual: not at all 9. Thoughts that you would be better off or of hurting yourself in some way: not at all Total score: 5 Source: Developed by Drs. Cesar Lowery, Lm Marques and colleagues, with an educational raman from [employer]. Thrive Questionnaire Date Thrive assessed: 12/24/20 RAJIV-7 AMB Questionnaire RAJIV-7 Date RAJIV - 7 assessed: 06/18/22 Source: Developed by Sherin Slaughter Kurt Kroenke and colleagues, with an educational raman from [employer]. Review of Systems Const Denies chills, Denies fatigue, Denies fever(s), Denies headache(s) and Denies weakness Eyes Denies change in vision ENT Denies dizziness, Denies headache(s), Denies hearing loss, Denies nasal congestion, Denies sinus pain, Denies sinus pressure and Denies sore throat Card Denies chest pain, Denies lightheadedness, Denies dyspnea and Denies other (palpitations) Resp Denies cough, Denies dyspnea and Denies wheezing GI Denies abdominal pain, Denies melena, Denies hematochezia, Denies change in bowel habits, Denies dyspepsia and Denies nausea Denies hematuria and Denies dysuria Musc Denies abnormal gait, Denies myalgias, Denies arthralgias, Denies numbness and Denies tingling Skin/Breast Denies rash, Denies unusual bruising and Denies wounds Neuro Denies abnormal gait, Denies dizziness, Denies headache(s), Denies memory loss, Denies numbness, Denies Sensory deficit (Neuro), Denies tingling and Denies weakness Psych Denies anxiety, Denies depression and Denies memory loss Endo Denies cold intolerance, Denies fatigue, Denies heat intolerance, Denies polydipsia and Denies polyuria Tao/Lymph Denies easy bleeding and Denies easy bruising Aller/Immun Denies wheezing Physical exam (Primary Care) Vital Signs: Last Vital Signs Pulse 76 02/02/23 14:12 BP 120/70 02/02/23 14:12 Pulse Ox 96 02/02/23 14:12 Oxygen Delivery Method Room Air 02/02/23 14:12 BMI result Body Mass Index 30.3 Tobacco/Smoking Status: Tobacco use Status Tobacco use date assessed 02/02/23 02/02/23 14:19 Patient Tobacco Use Status Never used Tobacco 02/02/23 14:14 e-Cigarette/Vaping Use Never Used 02/02/23 14:14 PHQ-9: PHQ-9 Score PHQ-9: Total score 5 02/02/23 14:29 Thrive Assessment: Date of Thrive Assessment Date Thrive assessed 12/24/20 02/02/23 14:14 Const General: no acute distress, well developed, alert and awake Nutritional Appearance: well nourished Orientation/consciousness: patient oriented x3 HENMT Head: Yes normocephalic and Yes atraumatic Ears: hearing grossly normal bilaterally and TM's normal bilaterally General nose exam: Normal external nose present and Normal nares present Mouth: Normal oral and palatal mucosa present and moist mucous membranes Teeth and gingiva: dentition normal Throat: Yes posterior oropharynx normal Eyes General: appearance normal, both eyes and all related structures Pupils: Equal, round and reactive pupils present and Pupil accommodation reflex normal EOM: EOMs intact bilaterally Neck Neck: Yes normal visual inspection, Yes no lymphadenopathy and Yes trachea midline Thyroid: Thyroid normal Carotids: no bruits Lymphatic: no lymphadenopathy noted Chest Chest palpation & inspection: normal inspection of the chest Resp Effort & Inspection: normal respiratory effort Auscultation: clear to auscultation bilaterally Cardio Rate: regular rate Rhythm: regular rhythm Heart sounds: S1 normal heart sound present, S2 normal heart sound present, no gallops, no murmurs and no rubs Bruits: no abdominal aortic bruits and no carotid bruits GI Palpation (GI): No Abdominal aortic bruit present, Soft to palpation, nontender, No hepatosplenomegaly present and No Rebound tenderness present Auscultation: normal bowel sounds General: Yes no CVA tenderness Back/Spine/Pelvis Back: no CVA tenderness Cervical Spine: cervical ROM normal and No Cervical spine tenderness Thoracic/Lumbar Spine: thoraco-lumbar ROM normal, No pain with thoraco-lumbar ROM, No thoracic spinal tenderness and No lumbar spinal tenderness Skin Lesions: no lesions Rashes: no rashes Trauma: no lacerations or abrasions Wounds: no wounds Nails: normal Neuro General: patient oriented x3 Cranial nerves: Yes Equal, round and reactive pupils present Cognition (Neuro): normal cognition Gait exam (Neuro): Normal gait present Motor exam (neuro): 5/5 motor strength present throughout Sensory Exam: No Sensory deficit (Neuro) Deep tendon reflexes (DTR's): Right patellar reflex intensity grade: 2+ and Left patellar reflex intensity grade: 2+ Extrem General: Yes normal to inspection and No edema Psych Appearance: grossly normal Affect: normal affect Attitude: cooperative Thought process: Normal thought process present Assessment and Plan Assessment & Plan (1) Hypertension: Code(s): I10 - Essential (primary) hypertension Plan: Blood pressure is well controlled. Goal is less than 140/90 Continue diet control (2) Decreased hearing: Code(s): H91.90 - Unspecified hearing loss, unspecified ear Plan: Bilateral hearing loss and wears hearing aids Will refer her back to speech and hearing center for testing as she is noting worsening hearing Had seen ENT in the past and may need to see them again (3) Hypercholesterolemia: Code(s): E78.00 - Pure hypercholesterolemia, unspecified Plan: LDL cholesterol still significantly high and HDL is high and partially protective but we had discussed medications such as statins and red yeast rice and Zetia She has not tried the red yeast rice yet. She will try this and we can follow-up at her next visit. If still elevated, will discuss Zetia as patient is still rather opposed to statin medications. (4) Screening for colon cancer: Code(s): Z12.11 - Encounter for screening for malignant neoplasm of colon Plan: Followed by Dr. Kohler and had recent colonoscopy. She was advised to follow-up in 5 years Up-to-date (5) Breast cancer screening by mammogram: Code(s): Z12.31 - Encounter for screening mammogram for malignant neoplasm of breast Plan: Mammogram last fall was negative Continue annual screening (6) Bilateral hearing loss: Code(s): H91.93 - Unspecified hearing loss, bilateral Plan: Worsening bilateral hearing loss Referred for audiology testing at [facility]. She had seen ENT in the past. She has question why she has never had an MRI and she may want to discuss this with her ENT after audiology (7) Adult general medical exam: Code(s): Z00.00 - Encounter for general adult medical examination without abnormal findings Plan: 67-year-old female presents for an extended exam Encouraged healthy diet with active lifestyle and plenty of exercise Orders: Orders Comprehensive Met. Panel Today E78.00 - Pure hypercholesterolemia, unspecified Lipid Panel Today E78.00 - Pure hypercholesterolemia, unspecified, Z00.00 - Encounter for general adult medical examination without abnormal findings Referrals Audiology Referral H91.93 - Unspecified hearing loss, bilateral Coding Level of Care Code Est Pt Level 4 (53660) Diagnoses Hypertension I10 Decreased hearing H91.90 Hypercholesterolemia E78.00 Screening for colon cancer Z12.11 Breast cancer screening by mammogram Z12.31 Bilateral hearing loss H91.93 Adult general medical exam Z00.00
[2023-02-02 14:12] VITALS: BP 120/70; PULSE 76; O2SAT 96; BMI 30.3
== END 2023-02-02 14:56 | disposition home or self-care (01) ==
PROVIDERS: PCP Family Medicine; Visit Provider Family Medicine
DX: I10 Essential (primary) hypertension (principal); H91.90 Unspecified hearing loss, unspecified ear; E78.00 Pure hypercholesterolemia, unspecified; Z12.11 Encounter for screening for malignant neoplasm of colon; Z12.31 Encounter for screening mammogram for malignant neoplasm of breast; H91.93 Unspecified hearing loss, bilateral; Z00.00 Encounter for general adult medical examination without abnormal findings
CPT/HCPCS: 99214; 99397

== ENCOUNTER 2023-05-26 10:16 | Outpatient (REF) | payer MEDICARE, SELFPAY ==
[2023-05-26 10:29] LABS: MANUAL DIFF FLAG NO
[2023-05-26 11:45] LABS: Basophils Percent Auto 0.6 % (0-2); Eosinophils Absolute Auto 0.4 X10*3/uL (0.0-0.4); Eosinophils Percent Auto 8.7 % (0-4); Hematocrit 42.1 % (37.0-47.0); Hemoglobin 13.7 g/dl (12.0-16.0); Imm Gran Abs Auto 0.01 X10*3/uL (0.00-0.03); Imm Gran Pct Auto 0.2 % (0.0-0.4); Lymphocytes Absolute Auto 1.7 X10*3/uL (1.2-4.9); Lymphocytes Percent Auto 35.6 % (20-40); Mean Corpuscular HGB Conc 32.5 g/dl (31.0-35.0); Mean Corpuscular Hemoglobin 32.5 pg (27.0-33.0); Mean Corpuscular Volume 99.8 fL (80.0-98.0); Mean Platelet Volume 9.5 fL (9.4-12.3); Monocytes Absolute Auto 0.5 X10*3/uL (0.1-1.2); Monocytes Percent Auto 10.4 % (2-11); Neutrophils Absolute Auto 2.1 x10*3/uL (2.0-8.3); Neutrophils Percent Auto 44.5 % (45-73); Platelet Count 201 X10*3/uL (160-400); Red Blood Count 4.22 X10*6/uL (4.20-5.50); White Blood Count 4.8 X10*3/uL (4.8-10.8)
[2023-05-26 11:47] LABS: Appearance Urine Clear; Color Urine Yellow; Glucose Urine UA Negative (Negative); Leukocyte Esterase Urine Moderate (2+) (Negative); Nitrite Urine Negative (Negative); UMIC TRIGGER UA YES; Urine Blood Negative (Negative); Urine Ketones Negative (Negative); Urine Protein Negative (Neg-Trace)
[2023-05-26 12:15] LABS: Creatinine Urine 63.83 mg/dL; Microalbum/Creatinine Ratio Ur 9.3 ug/mg cr (<30)
[2023-05-26 12:16] LABS: Bacteria Urine None Seen (None Seen); Hyaline Casts Urine 0-2 /LPF (0-2); RBC Urine 0-2 /HPF (0-2); Squamous Epithelial Cell Urine 0-2 /HPF (0-2); WBC Urine 0-5 /HPF (0-5)
[2023-05-26 12:18] LABS: Alanine Aminotransferase 20 U/L (0-31); Albumin Level 4.2 g/dL (3.5-5.0); Alkaline Phosphatase 70 U/L (39-117); Anion Gap 9 (12-20); Aspartate Amino Transferase 19 U/L (5-31); Bilirubin Total 1.2 mg/dL (0.0-1.0); Blood Urea Nitrogen 13 mg/dL (9-16); Calcium 9.1 mg/dL (8.4-10.2); Carbon Dioxide 30 mmol/L (22-29); Chloride 106 mmol/L (96-108); Cholesterol 261 mg/dL (<200); Estimated Glomerular Filt Rate > 60; Glucose Fasting 88 mg/dL (60-99); Glucose Random 88 mg/dL (60-115); HDL Cholesterol 79 mg/dL (>40); LDL Cholesterol Calculated 165 mg/dL (<100); Potassium 4.1 mmol/L (3.3-5.1); Sodium 141 mmol/L (135-145); Total Protein 6.9 g/dL (6.5-8.0); Triglycerides 89 mg/dL (<150)
== END 2023-05-26 10:17 | disposition home or self-care (01) ==
LOC: HO.LAB 10:16
PROVIDERS: PCP Family Medicine; Referring Provider Internal Medicine Rheumatology; Visit Provider Family Medicine
DX: Z00.00 Encounter for general adult medical examination without abnormal findings (principal); I10 Essential (primary) hypertension; E78.00 Pure hypercholesterolemia, unspecified
CPT/HCPCS: 36415; 80053; 80061; 81001; 82043; 82570; 84443; 85025

== ENCOUNTER 2023-06-05 08:27 | Outpatient (AMB) | payer MEDICARE, SELFPAY ==
[2023-06-05 08:41] VITALS: BP 118/60; PULSE 74; RESP 13; O2SAT 96; BMI 30.3
--- NOTE | 2023-06-05 08:41 | MHC.PC.OV ---
Vital Signs 06/05/23 08:41 Height 5 ft 5 in Weight 182 lb BMI 30.3 BP 118/60 Blood Pressure Location Lt brachial Position Sitting Respiration 13 Pulse 74 Pulse Source Pulse Oximeter Pulse Oximetry (%) 96 Oxygen Delivery Method Room Air Intake Visit Reasons: f/u hypercholesterolemia Intake Note: Patient presents for follow up with labs. Patient reports shes been having some pelvic area pain along with flank pain that sometimes radiates to her buttocks. Patient reports she is unsure if the two are related but she wanted to mention it. 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 Required: No Accompanied by: Self / Same As Patient Allergies Penicillins Allergy (Mild, Verified 06/05/23 08:44) UNKNOWN procaine [From Novocain] Allergy (Mild, Verified 06/05/23 08:44) HIVES/SWELLING penicillin V Allergy (Unknown, Verified 06/05/23 08:44) Hives, swelling,fainting lidocaine [From Xylocaine] Allergy (Verified 06/05/23 08:44) Unconscious Novocaine Allergy (Mild, Uncoded 06/05/23 08:44) Unconscious Tobacco use date assessed: 02/02/23 HPI f/u hypercholesterolemia HPI Details Patient?returns?to?discuss?hyperlipidemia LDL?cholesterol?has?decreased?about?11?points?but?still?significantly?above?goal?of?less?than?130 She?has?been?using?red?yeast?rice Has?a?fairly?active?lifestyle?and?gets?some?exercise?but?feels?she?could?do?more PFSH Medical History Fibromyalgia Osteoarthritis Elevated cholesterol Surgical History History of partial hysterectomy Hx of colonoscopy History of knee surgery History of ear surgery History of bladder surgery Social History Household Members: Family Housing: House Alcohol intake: current Alcohol intake frequency: holidays/special occasions only Patient Tobacco Use Status: Never used Tobacco e-Cigarette/Vaping Use: Never Used Second Hand Smoke Exposure: No service: No Current occupational status: retired 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 Cesar Lowery, Sherin Garnica, Lm Sanford and colleagues, with an educational raman from [facility]. Review of Systems Const Denies chills, Denies fatigue, Denies fever(s), Denies headache(s) and Denies weakness ENT Denies dizziness and Denies headache(s) Card Denies chest pain, Denies lightheadedness, Denies dyspnea and Denies other (Palpitations) Resp Denies cough, Denies dyspnea, Denies wheezing and Denies other ( shortness of breath) Details: Suprapubic?pain.??No?dysuria Musc Denies numbness and Denies tingling Neuro Denies dizziness, Denies headache(s), Denies numbness, Denies tingling, Denies paresthesias and Denies weakness Psych Denies anxiety and Denies depression Endo Denies fatigue Aller/Immun Denies wheezing Physical exam (Primary Care) Vital Signs: Last Vital Signs Pulse 74 06/05/23 08:41 Resp 13 06/05/23 08:41 BP 118/60 06/05/23 08:41 Pulse Ox 96 06/05/23 08:41 Oxygen Delivery Method Room Air 06/05/23 08:41 BMI result Body Mass Index 30.3 Tobacco/Smoking Status: Tobacco use Status Tobacco use date assessed 02/02/23 06/05/23 08:43 Patient Tobacco Use Status Never used Tobacco 06/05/23 08:46 e-Cigarette/Vaping Use Never Used 06/05/23 08:46 Thrive Assessment: Date of Thrive Assessment Date Thrive assessed 12/24/20 06/05/23 08:43 Const General: no acute distress and well developed Nutritional Appearance: well nourished Orientation/consciousness: patient oriented x3 HENMT Head: Yes normocephalic and Yes atraumatic Eyes General: appearance normal, both eyes and all related structures Pupils: Equal, round and reactive pupils present EOM: EOMs intact bilaterally Resp Effort & Inspection: normal respiratory effort Auscultation: clear to auscultation bilaterally Cardio Rate: regular rate Rhythm: regular rhythm Heart sounds: S1 normal heart sound present, S2 normal heart sound present, no gallops, no murmurs and no rubs GI Other: Mild?suprapubic?tenderness?to?palpation Neuro General: patient oriented x3 and gait normal Cranial nerves: Yes Equal, round and reactive pupils present Psych Affect: normal affect Assessment and Plan Assessment & Plan (1) Suprapubic pain: Code(s): R10.2 - Pelvic and perineal pain (2) Hypercholesterolemia: Code(s): E78.00 - Pure hypercholesterolemia, unspecified Plan: LDL?cholesterol?is?still?above?goal?of?less?than?130 She?would?like?to?continue?lifestyle?changes?and?increase?her?exercise. HDL?is?desirably?high. We?discussed?that?if?she?can?get?her?cholesterol?down?another?10-15?point?she?will?likely?have?ideal?HDL?ratios She?can?continue?red?yeast?rice?as?well. Orders: Orders UA and rflx microscopic Today R10.2 - Pelvic and perineal pain, Z00.00 - Encounter for general adult medical examination without abnormal findings Urine Culture Today R10.2 - Pelvic and perineal pain Coding Level of Care Code Est Pt Level 3 (00070) Diagnoses Suprapubic pain R10.2 Hypercholesterolemia E78.00
== END 2023-06-05 09:22 | disposition home or self-care (01) ==
PROVIDERS: PCP Family Medicine; Visit Provider Family Medicine
DX: R10.2 Pelvic and perineal pain (principal); E78.00 Pure hypercholesterolemia, unspecified
CPT/HCPCS: 99213

== ENCOUNTER 2023-06-05 09:20 | Outpatient (REF) | payer MEDICARE, SELFPAY ==
[2023-06-05 15:01] LABS: Appearance Urine Clear; Color Urine Yellow; Glucose Urine UA Negative (Negative); Leukocyte Esterase Urine Small (1+) (Negative); Nitrite Urine Negative (Negative); UMIC TRIGGER UA YES; Urine Blood Negative (Negative); Urine Ketones Negative (Negative); Urine Protein Negative (Neg-Trace)
[2023-06-05 15:14] LABS: Bacteria Urine None Seen (None Seen); Hyaline Casts Urine 0-2 /LPF (0-2); RBC Urine 0-2 /HPF (0-2); Squamous Epithelial Cell Urine 0-2 /HPF (0-2); WBC Urine 0-5 /HPF (0-5)
== END 2023-06-05 09:21 | disposition home or self-care (01) ==
LOC: HO.LAB 09:20
PROVIDERS: Visit Provider Family Medicine
DX: Z00.00 Encounter for general adult medical examination without abnormal findings (principal); R10.2 Pelvic and perineal pain
CPT/HCPCS: 81001; 81003; 87086

== ENCOUNTER 2023-08-04 13:41 | Outpatient (AMB) | payer MEDICARE, SELFPAY ==
[2023-08-04 13:50] VITALS: BP 120/74; BMI 30.4
--- NOTE | 2023-08-04 13:50 | A.OFFVIS_ITS ---
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 Required: No Information Interpreted: non-clinical & clinical Photogrammetric Tech: Photogrammetric Tech Present (Aidyn) Allergies Penicillins Allergy (Mild, Verified 08/04/23 13:52) UNKNOWN procaine [From Novocain] Allergy (Mild, Verified 08/04/23 13:52) HIVES/SWELLING penicillin V Allergy (Unknown, Verified 08/04/23 13:52) Hives, swelling,fainting lidocaine [From Xylocaine] Allergy (Verified 08/04/23 13:52) Unconscious Novocaine Allergy (Mild, Uncoded 08/04/23 13:52) Unconscious Is last menstrual period known: No Post menopausal: Yes Patient : No HPI HPI Comments History of Present Illness Details The patient is presenting with vaginal/pelvic pain started few months ago. It's intermittent in nature lasting few seconds. The patient is complaining of vaginal pressure associated with vaginal odor and dryness, the discomfort gets better after voiding. it is not associated with dysuria, no n/v, no feverishness care the patient has a long-term history of stress urine incontinence/overactive bladder status post 2 unsuccessful surgical repairs. [facility] Medical History Fibromyalgia Osteoarthritis Elevated cholesterol Surgical History History of partial hysterectomy Hx of colonoscopy History of knee surgery History of ear surgery History of bladder surgery Family History Mother Breast cancer Social History Household Members: Family Housing: House Alcohol intake: current Alcohol intake frequency: holidays/special occasions only Patient Tobacco Use Status: Never used Tobacco e-Cigarette/Vaping Use: Never Used Second Hand Smoke Exposure: No Patient : No service: No Current occupational status: retired Current occupation: rt handed / [employer] Current occupational exposures/hazards: No Sexual orientation: Unable to collect Gender identity: Unable to collect Cognitive needs: No Hearing needs: Yes (hearing aide) Vision needs: Yes (glasses) Female Reproductive History Menstrual Age of Menarche: 10 control method: permanent sterilization Total pregnancies: 1 Full term: 1 Number of Living Children: 1 Date of last pap smear: 01/23/05 (negative) Date of Mammogram: 10/20/22 Date of last Bone Density Screenin04/16/22 Review of Systems Const All systems reviewed & are unremarkable except as noted in HPI and below Card Reports as per HPI and Reports no additional complaints Resp Reports as per HPI and Reports no additional complaints GI Reports as per HPI and Reports no additional complaints Reports as per HPI Physical Exam Vital Signs: Last Vital Signs BP 120/74 08/04/23 13:50 BMI result Body Mass Index 30.4 Const General: cooperative, healthy appearing and comfortable General: Yes bladder normal to palpation External Female Exam: No lesion Speculum Exam - Vagina: normal appearance of the vagina, normal vaginal discharge and not erythematous Speculum Exam - Cervix: Cervix absent Bimanual exam- vagina & uterus: bladder normal to palpation, uterus absent and other (Mild rectocele) Bimanual Exam- Adnexa, other: Other (No masses detected) Assessment & Plan Assessment & Plan (1) Pelvic pain: Comment: With vaginal pressure Mild rectocele Code(s): R10.2 - Pelvic and perineal pain Plan: Urine dip done in the office was negative. BV panel taken and pelvic ultrasound ordered. Discussed with the patient the differential diagnosis of pelvic/vaginal pain including but not limited to adnexal masses, rectocele, BV, GI the (Irritable bowel syndrome, diverticulitis, others), musculoskeletal, myofascial pain abdominal wall , adhesions, psychological and others causes. Will treat with Flagyl 500 mg p.o. b.i.d. for 7 days All questions answered, the patient verbalized understanding. Instructed the patient to schedule follow-up appointment in 2 weeks (2) Bacterial vaginosis: Code(s): N76.0 - Acute vaginitis; B96.89 - Other specified bacterial agents as the cause of diseases classified elsewhere Plan: BV panel taken. Will treat with Flagyl 500 mg p.o. b.i.d. x 7 days, Instructions given to the patient to call if symptoms persist or recur. Orders: Orders US pelvic and transvaginal Today R10.2 - Pelvic and perineal pain Coding Level of Care Code New Pt Level 3 (71012) Diagnoses Pelvic pain R10.2 Bacterial vaginosis N76.0; B96.89
== END 2023-08-04 14:19 | disposition home or self-care (01) ==
LOC: HO.HWS 13:41
PROVIDERS: PCP Family Medicine; Visit Provider Obstetrics & Gynecology
DX: R10.2 Pelvic and perineal pain (principal); N76.0 Acute vaginitis; B96.89 Other specified bacterial agents as the cause of diseases classified elsewhere
CPT/HCPCS: 99203

== ENCOUNTER 2023-08-04 13:41 | Outpatient (REF) | payer MEDICARE, SELFPAY ==
[2023-08-06 11:34] LABS: BV Int Neg Control Negative (Negative); BV Int Pos Control Positive (Positive)
== END 2023-08-04 13:42 | disposition home or self-care (01) ==
LOC: HO.LNP 13:41
PROVIDERS: PCP Family Medicine; Visit Provider Obstetrics & Gynecology
DX: R10.2 Pelvic and perineal pain (principal); N76.0 Acute vaginitis; B96.89 Other specified bacterial agents as the cause of diseases classified elsewhere
CPT/HCPCS: 81003; 87480; 87510; 87660; 99202

== ENCOUNTER 2023-09-07 13:17 | Outpatient (REF) | payer MEDICARE, SELFPAY ==
--- NOTE | ~2023-09-07 | US_ITS ---
EXAMINATION: US PELVIS CLINICAL INFORMATION: Pelvic pain. Hysterectomy 2009. COMPARISON: None available. TECHNIQUE: Ultrasound of the pelvis is performed using both transabdominal and transvaginal transducers along with Doppler. Transvaginal imaging is performed due to inadequate visualization transabdominally. FINDINGS: The uterus is surgically absent. Bilateral ovaries not visualized. Limited visualization due to bowel gas. US/US pelvic and transvaginal IMPRESSION: Uterus is surgically absent. Bilateral ovaries not visualized.
== END 2023-09-07 13:18 | disposition home or self-care (01) ==
LOC: HO.US 13:17
PROVIDERS: PCP Family Medicine; Visit Provider Obstetrics & Gynecology
DX: R10.2 Pelvic and perineal pain (principal)
CPT/HCPCS: 76830; 76856

== ENCOUNTER 2023-09-08 15:32 | Outpatient (REF) | payer MEDICARE, SELFPAY | END 2023-09-08 15:33 | disposition home or self-care (01) | LOC: HO.SH 15:32 | PROVIDERS: PCP Family Medicine; Visit Provider Family Medicine | DX: Z01.118 Encounter for examination of ears and hearing with other abnormal findings (principal); H90.3 Sensorineural hearing loss, bilateral | CPT/HCPCS: 92557 ==

== ENCOUNTER 2023-10-12 09:46 | Outpatient (AMB) | payer MEDICARE, SELFPAY ==
--- NOTE | 2023-10-12 10:11 | MHC.OFFVIS ---
Vital Signs 10/12/23 10:13 Height 5 ft 5 in Weight 182 lb 15.739 oz BMI 30.4 BP 128/72 Intake Visit Reasons: re-evaluate Barbering Instructor Required: No Information Interpreted: non-clinical & clinical City Driver: City Driver Present (Uma Easley IRINA) Accompanied by: Self / Same As Patient Allergies Penicillins Allergy (Mild, Verified 10/12/23 10:13) UNKNOWN procaine [From Novocain] Allergy (Mild, Verified 10/12/23 10:13) HIVES/SWELLING penicillin V Allergy (Unknown, Verified 10/12/23 10:13) Hives, swelling,fainting lidocaine [From Xylocaine] Allergy (Verified 10/12/23 10:13) Unconscious Novocaine Allergy (Mild, Uncoded 10/12/23 10:13) Unconscious Post menopausal: Yes HPI Comments Details: Presenting for follow-up vaginal pressure and occasional vaginal discharge, BV panel was negative, urine dip was negative, pelvic ultrasound showed surgically absent uterus and bilateral ovaries were not visualized PFSH Medical History Fibromyalgia Osteoarthritis Elevated cholesterol Surgical History History of partial hysterectomy Hx of colonoscopy History of knee surgery History of ear surgery History of bladder surgery Family History Mother Breast cancer Social History Household Members: Family Housing: House Alcohol intake: current Alcohol intake frequency: holidays/special occasions only Patient Tobacco Use Status: Never used Tobacco e-Cigarette/Vaping Use: Never Used Second Hand Smoke Exposure: No service: No Current occupational status: retired 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 Current occupational exposures/hazards: No Sexual orientation: Unable to collect Gender identity: Unable to collect Cognitive needs: No Hearing needs: Yes (hearing aide) Vision needs: Yes (glasses) Female Reproductive History Menstrual Age of Menarche: 10 Review of Systems Const All systems reviewed & are unremarkable except as noted in HPI and below Reports as per HPI and Reports no additional complaints GI Reports no additional complaints Reports no additional complaints Physical Exam Vital Signs: Last Vital Signs BP 128/72 10/12/23 10:13 BMI result Body Mass Index 30.4 Assessment & Plan Assessment & Plan (1) Urine incontinence: Comment: With vaginal pressure and rectocele Code(s): R32 - Unspecified urinary incontinence Category: Medical Plan: Discussed with the patient the results the ultrasound, surgically absent uterus, ovaries not visualized; and the fact that ovarian pathology has not been ruled out. Will refer the patient to uro Gyne for further management since the patient had to urine incontinence surgeries and is still have recurrent urine incontinence symptoms. All questions answered, the patient verbalized understanding and agreed with the plan Instructed the patient to call our office back in case a referral appointment is not scheduled, missed or canceled so that we will assist on rescheduling another appointment, the patient verbalized understanding agreed with the plan. Orders: Referrals Urogynecology Referral R32 - Unspecified urinary incontinence Coding Level of Care Code Est Pt Level 3 (93450) Diagnoses Urine incontinence R32
[2023-10-12 10:13] VITALS: BP 128/72; BMI 30.4
== END 2023-10-12 10:31 | disposition home or self-care (01) ==
PROVIDERS: PCP Family Medicine; Visit Provider Obstetrics & Gynecology
DX: R32 Unspecified urinary incontinence (principal)
CPT/HCPCS: 99213

== ENCOUNTER → 2023-10-12 09:46 | Outpatient (BNVA) | payer MEDICARE, SELFPAY | PROVIDERS: PCP Family Medicine; Visit Provider Obstetrics & Gynecology | DX: R32 Unspecified urinary incontinence (principal); N81.6 Rectocele | CPT/HCPCS: 99212 ==

== ENCOUNTER 2023-11-11 08:23 | Outpatient (REF) | payer MEDICARE, SELFPAY ==
[2023-11-11 08:56] LABS: Appearance Urine Clear; Color Urine Yellow; Glucose Urine UA Negative (Negative); Leukocyte Esterase Urine Large (3+) (Negative); Nitrite Urine Negative (Negative); PH 7.5 (5.0-9.0); UMIC TRIGGER UA YES; Urine Blood Negative (Negative); Urine Ketones Negative (Negative); Urine Protein Negative (Neg-Trace)
[2023-11-11 09:06] LABS: Bacteria Urine None Seen (None Seen); Hyaline Casts Urine 0-2 /LPF (0-2); RBC Urine 0-2 /HPF (0-2); Squamous Epithelial Cell Urine 0-2 /HPF (0-2)
[2023-11-11 09:56] LABS: Cholesterol 245 mg/dL (<200); HDL Cholesterol 83 mg/dL (>40); LDL Cholesterol Calculated 147 mg/dL (<100); Triglycerides 78 mg/dL (<150)
== END 2023-11-11 08:24 | disposition home or self-care (01) ==
LOC: HO.LAB 08:23
PROVIDERS: PCP Family Medicine; Visit Provider Family Medicine
DX: Z00.00 Encounter for general adult medical examination without abnormal findings (principal); E78.00 Pure hypercholesterolemia, unspecified; R10.2 Pelvic and perineal pain
CPT/HCPCS: 36415; 80061; 81001; 81003

== ENCOUNTER 2024-02-01 15:59 | Outpatient (REF) | payer MEDICARE, SELFPAY ==
--- NOTE | ~2024-02-01 | MM_ITS ---
EXAMINATION: MM SCREENING DIGITAL BREAST TOMOSYNTHESIS, BILATERAL CLINICAL INFORMATION: Screening. Asymptomatic. COMPARISON: Mammography: This study is compared with prior exams dating back to 2019. TECHNIQUE: Digital breast tomosynthesis is performed in both the craniocaudal and mediolateral oblique views along with computer-aided detection (CAD). Synthesized 2D images are generated from the tomosynthesis. FINDINGS: The breasts are almost entirely fatty (ACR BI-RADS breast composition Category a). There are no significant masses, abnormal calcifications, or other abnormalities. MM/MM tomosynthesis screening BI IMPRESSION: No mammographic evidence of malignancy. ASSESSMENT: BI-RADS BI-RADS 1 - Negative RECOMMENDATION: Routine annual mammography screening. 1 year F/U This examination should not preclude the clinical evaluation of a suspicious palpable abnormality. This patient's information was entered into a reminder system with a target due date for their next mammogram. Electronically signed by: Diana Tavarez MD 02/29/2024 10:54 AM EDT
== END 2024-02-01 16:00 | disposition home or self-care (01) ==
LOC: HO.MAMMO 15:59
PROVIDERS: PCP Family Medicine; Visit Provider Family Medicine
DX: Z12.31 Encounter for screening mammogram for malignant neoplasm of breast (principal)
CPT/HCPCS: 77063; 77067

== ENCOUNTER → 2024-02-01 16:00 | Outpatient (BNV) | payer MEDICARE, SELFPAY | PROVIDERS: PCP Family Medicine; Visit Provider Radiology Diagnostic Radiology | DX: Z12.31 Encounter for screening mammogram for malignant neoplasm of breast (principal) | CPT/HCPCS: 77063; 77067 ==

== ENCOUNTER 2024-02-19 14:32 | Outpatient (AMB) | payer MEDICARE, SELFPAY ==
--- NOTE | 2024-02-19 14:33 | A.OFFPC_ITS ---
Vital Signs 02/19/24 14:45 Height 5 ft 5 in Weight 185 lb 4 oz BMI 30.8 BP 132/70 Blood Pressure Location Rt brachial Position Sitting Respiration 16 Pulse 74 Pulse Source Pulse Oximeter Temp 97.5 F Temp Source Oral Pulse Oximetry (%) 96 Oxygen Delivery Method Room Air Intake Visit Reasons: follow up F/U Hypercholesterolemina Intake Note: patient here for follow up on Hypercholesterolemina. Marble Cutter Required: No Is last menstrual period known: No Post menopausal: No Patient : No Allergies Penicillins Allergy (Mild, Verified 02/19/24 14:39) UNKNOWN procaine [From Novocain] Allergy (Mild, Verified 02/19/24 14:39) HIVES/SWELLING penicillin V Allergy (Unknown, Verified 02/19/24 14:39) Hives, swelling,fainting lidocaine [From Xylocaine] Allergy (Verified 02/19/24 14:39) Unconscious Novocaine Allergy (Mild, Uncoded 10/12/23 10:13) Unconscious Tobacco use date assessed: 02/19/24 Fall risk assessment: 1 Fall in past year Last assessed Fall Risk: 02/19/24 Dental Screening Dental Screen Date: 02/19/24 Did you have a dental visit in the last 12 months?: Yes Did you have a dental problem in the last 6 months where you did not have access to dental care?: No Was dental information given to patient?: Patient has dentist HPI follow up F/U Hypercholesterolemina HPI Details 68 y/o female presents to f/u hyperchole sterolemia. Apprehensive of statins and Zetia. Lipid panel drawn 11/11/23. Reviewed labs with pt. Triglycerides 78. TC 235. LDL 147, improved from 165. HDL 83. Has not been exercising much due to plantar fasciitis x2 months. She reports hearing changes. HPI Comments History of Present Illness Details Documentation assistance for Kilo Velasquez MD, was provided by Nabeel Rodriguez, Assurance Sourcing Manager on 02/19/2024 at 3:02 PM EST. I, Dr. Velasquez, have read, observed, and verified documentation. [facility] Medical History (Updated 02/19/24 @ 15:35 by Nabeel Rodriguez) Fibromyalgia Osteoarthritis Elevated cholesterol Surgical History History of partial hysterectomy Hx of colonoscopy History of knee surgery History of ear surgery History of bladder surgery Family History Mother Breast cancer Social History Household Members: Family Housing: House Alcohol intake: current Alcohol intake frequency: holidays/special occasions only Patient Tobacco Use Status: Never used Tobacco e-Cigarette/Vaping Use: Never Used Second Hand Smoke Exposure: No Patient : No service: No Current occupational status: retired Current occupation: rt handed / [employer] Current occupational exposures/hazards: No Sexual orientation: Unable to collect Gender identity: Unable to collect Cognitive needs: No Hearing needs: Yes (hearing aide) Vision needs: Yes (glasses) Female Reproductive History Menstrual Age of Menarche: 10 Questionnaire Thrive Questionnaire Date Thrive assessed: 12/24/20 RAJIV-7 AMB Questionnaire RAJIV-7 Date RAJIV - 7 assessed: 06/18/22 Source: Developed by Drs. Cesar Lowery, Sherin Garnica, Lm Sanford and colleagues, with an educational raman from [employer]. Review of Systems Const Denies chills, Denies fatigue, Denies fever(s), Denies headache(s) and Denies weakness ENT Denies dizziness and Denies headache(s) Card Denies dyspnea Resp Denies cough, Denies dyspnea, Denies wheezing and Denies other (shortness of breath) Musc Denies numbness and Denies tingling Neuro Denies dizziness, Denies headache(s), Denies numbness, Denies tingling and Denies weakness Psych Denies anxiety and Denies depression Endo Denies fatigue Aller/Immun Denies wheezing Physical exam (Primary Care) Vital Signs: Last Vital Signs Temp 97.5 F 02/19/24 14:45 Pulse 74 02/19/24 14:45 Resp 16 02/19/24 14:45 BP 132/70 02/19/24 14:45 Pulse Ox 96 02/19/24 14:45 Oxygen Delivery Method Room Air 02/19/24 14:45 BMI result Body Mass Index 30.8 Tobacco/Smoking Status: Tobacco use Status Tobacco use date assessed 02/19/24 02/19/24 14:52 Patient Tobacco Use Status Never used Tobacco 09/06/24 14:37 e-Cigarette/Vaping Use Never Used 02/19/24 14:37 Thrive Assessment: Date of Thrive Assessment Date Thrive assessed 12/24/20 02/19/24 14:37 Const General: well developed; No acute distress Nutritional Appearance: well nourished Orientation/consciousness: patient oriented x3 [facility] Head: Yes normocephalic and Yes atraumatic Eyes General: appearance normal, both eyes and all related structures Pupils: Equal, round and reactive pupils present EOM: EOMs intact bilaterally Resp Effort & Inspection: normal respiratory effort Neuro General: patient oriented x3 and gait normal Cranial nerves: Yes Equal, round and reactive pupils present Psych Affect: normal affect Assessment and Plan Assessment & Plan (1) Hypercholesterolemia: Code(s): E78.00 - Pure hypercholesterolemia, unspecified Plan: LDL?cholesterol?is?still?qu ite?high?though?patient?has?made?significant?improvements.??She?declines?statin? medications. HDL?is?desirably?high?and?ratios?are?good?however Continue?working?at?a?diet?low?in?saturated?fats?and?cholesterol We?will?continue?to?monitor (2) Plantar fasciitis: Code(s): M72.2 - Plantar fascial fibromatosis Plan: Demonstrated?exercises?for?patient?to?try Can?also?use?NSAIDs?and?Ice Follow- up?with?your?commercial loan specialist?and?if?the?above?is?not?helping,?consider?injection? therapy (3) Change in hearing: Code(s): H91.90 - Unspecified hearing loss, unspecified ear Plan: Patient?has?been?noticing?significant?decrease?in?hearing Had?referred?her?for?audiology?testing?and?she?notes?this?showed?marked?decrease ?in?her?hearing?though?I?do?not?have?the?report Referred?to?ENT (4) Fibromyalgia: Code(s): M79.7 - Fibromyalgia Plan: Ongoing?migratory?polymyalgia/polyarthralgia She?is?followed?by?rheumatology Unclear?cause She?does?have?a?history?of?fibromyalgia?and?we?discussed?that?this?is?the?most?l ikely?underlying?cause?of?her?symptoms Briefly?discussed?Cymbalta?and?patient?will?look?into?this/think?about?this Orders: Referrals Ear/Nose/Throat Referral H91.90 - Unspecified hearing loss, unspecified ear Coding Level of Care Code Est Pt Level 4 (41000) Diagnoses Hypercholesterolemia E78.00 Plantar fasciitis M72.2 Change in hearing H91.90 Fibromyalgia M79.7
[2024-02-19 14:45] VITALS: BP 132/70; PULSE 74; RESP 16; TEMP 36.4; O2SAT 96; BMI 30.8
== END 2024-02-19 16:00 | disposition home or self-care (01) ==
PROVIDERS: PCP Family Medicine; Visit Provider Family Medicine
DX: E78.00 Pure hypercholesterolemia, unspecified (principal); M72.2 Plantar fascial fibromatosis; H91.90 Unspecified hearing loss, unspecified ear; M79.7 Fibromyalgia
CPT/HCPCS: 99214

== ENCOUNTER 2024-05-27 13:08 | Outpatient (REF) | payer MEDICARE, SELFPAY ==
--- NOTE | ~2024-05-27 | MR_ITS ---
EXAMINATION: MR BRAIN WITHOUT AND WITH CONTRAST CLINICAL INFORMATION: Acoustic neuroma. Hearing loss. COMPARISON: None available. TECHNIQUE: Multiplanar, multisequence MRI of the brain was obtained using a skull base protocol without and following the administration of 8 mL of Gadavist intravenous contrast. FINDINGS: No focal restricted diffusion is demonstrated to suggest acute or subacute cerebral ischemia. No evidence of acute or chronic hemorrhagic products on heme-sensitive imaging. Few scattered periventricular and deep white matter T2 FLAIR hyperintensities consistent with minimal underlying microangiopathy. Proportional prominence of the ventricles and sulcal spaces without evidence of obstructive hydrocephalus. No abnormal mass effect. No midline shift. Normal appearance of the pituitary gland. Normal positioning of the cerebellar tonsils. No mass of the cerebellopontine angles. Normal appearance of the cranial nerve V, VII, and VIII nerve roots. No edema or vascular loops near the nerve root entry sites. Normal appearance of the internal auditory canals without enhancing mass lesions. No abnormal enhancement along the course of the facial nerves bilaterally. Normal appearance of the labyrinthine structures without loss of T2 signal or abnormal enhancement. Normal arterial and venous vascular flow voids are present. No abnormal intracranial contrast enhancement. Normal, homogeneous marrow signal. Mild mucosal thickening of the paranasal sinuses. Moderate rightward nasal septal deviation. No signal abnormalities within the mastoids. MR/MR head/brain wo/w con IMPRESSION: 1. No acute intracranial abnormalities. No abnormal intracranial enhancement. 2. Minimal underlying microangiopathy and generalized cerebral volume loss. 3. No additional MRI abnormalities to explain the patient's symptoms. Electronically signed by: Manav Villavicencio DO 05/30/2024 07:00 AM JONATHAN BROOKS
--- OUTSIDE RECORDS SUMMARY | 2024-05-27 13:16 | XMS_ITS | Patient Health Record ---
Author Organization [facility] Address [address] [place] [id number] Care Team Providers Care Manager Valuation Name Role Phone Kilo Velasquez Primary Care Provider Unavailab Cesar Bustamante Unavailable [phone] ALLERGIES Allergen (clinical drug ingredient) Drug/Non Drug Allergy documented on EMR Reaction Allergy Type Onset Date Status novacaine Unknown Drug Allergy Active Penicillin Unknown Drug Allergy Active REASON FOR REFERRAL No Information MEDICATIONS Medication SIG (Take, Route, Fr equency, Duration) Notes Start Date End Date Status Meloxicam 7.5 MG Oral for 30 PRN A ctive Fish Oil Active Vitamin D Active Magnesium Active Glucosamine Active Vitamin B Complex Ac tive SOCIAL HISTORY Sex Assigned At : Social History Observation Description Sex Assigned At Unknown PROBLEMS Problem Type ICD Code Onset Dates Problem Status W/U Status Risk SNOMED Code Notes Problem Constipation, unspecified constipation type (K59.00) Active confirmed 66406297 Problem Encounter for screening for malignant neoplasm of colon (Z12.11) Active confirmed 170868025 Problem Encounter for screening for malignant neoplasm of rectum (Z12.12) Active confirmed Screening fo r malignant neoplasm of rectum (532759764) Problem History of colon polyps (Z86.010) Active confirmed 590519415 Problem History of adenomatous polyp of colon (Z86.010) Active confirmed 704342682 Problem Pre-procedural examination (Z01.818) Active confirmed 538382476253822 Problem Diverticulosis of colon (K57.30) Active confirmed Diverticulosi s of colon (298673894) Problem 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 (598223003) PLAN OF TREATMENT Pending Test Test Name Order Date Pathology 12/12/2022 Future Test Test Name Order Date COLONOSCOPY 06/18/2016 COLONOSCOPY 10/07/2022 Insurance Providers Payer Name Payer Address Payer Phone Subscriber Number Group Number Insured Name Patient Relationship to Insured Coverage Start Date Coverage End Date [facility] [address] [place] [phone] [id number] OSCAR COLLIER Self - patient is the insured MEDICARE OF [place] [address] [facility] [address] [id number] OSCAR COLLIER Self - patient is the insured MEDICAL (GENERAL) HISTORY Medical History History ICD Code Urinary incontinence Denies [place],DM,CVA,Lung disease,renal dise ase Colonoscopy with Dr. Teran at [place]--11/14 009--1 small tubular adenoma Colonoscopy 09/2016 with only a hyperplas tic polyp Hard of hearing Surgical History Surgery Date(Month/Year) Bladder suspension 1991 Cystocele/rectocele--portion of sigmoid colon removed for constipation--Dr. So 2005 Ear surgery as a child Right knee 2018
--- OUTSIDE RECORDS SUMMARY | 2024-05-27 13:16 | XMS_ITS ---
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 (642349204) Encounters Encounter Location Date Provider Diagnosis [facility] Out[facility] [address], [place] [id number] 12/12/2022 Cesar Kohler Colon cancer scree malinda Z12.11 ; Colon polyp K63.5 ; Diverticulosis of colon K57.30 ; Internal hemorrhoids K64.8 ; Hx of Billroth II operation Z98.0 and Rectal polyp K62.1 ASSESSMENTS Encounter Date Diagnosis Assessment Notes Treatment Notes Treatment Clinical Notes 12/12/2022 Colon cancer screening (ICD-10 - Z12.11) 12/12/2022 Colon polyp (ICD-10 - K63.5) 12/12/2022 Diverticulosis of colon (ICD-10 - K57.30) 12/12/2022 Internal hemorrhoids (ICD-10 - K64.8) 12/12/2022 Hx of Billroth II operation (ICD-10 - Z98.0) 12/12/2022 Rectal polyp (ICD-10 - K62.1) PLAN OF TREATMENT No Information
[2024-05-27] MEDS: gadobutroL 10 ML VIAL IVPUSH (14:10)
== END 2024-05-27 13:09 | disposition home or self-care (01) ==
LOC: HO.MRI 13:08
PROVIDERS: PCP Family Medicine; Visit Provider Otolaryngology
DX: D33.3 Benign neoplasm of cranial nerves (principal)
CPT/HCPCS: 70553; A9585

== ENCOUNTER 2024-09-15 09:25 | Outpatient (REF) | payer MEDICARE, SELFPAY ==
--- OUTSIDE RECORDS SUMMARY | 2024-09-15 09:55 | XMS_ITS | Patient Health Record ---
Author Organization [facility] Address [address] [place] [id number] Care Team Providers Care Recycling Director Name Role Phone Kilo Velasquez Primary Care Provider Unavailab Cesar Bustamante Unavailable [phone] Allergies Allergen (clinical drug ingredient) Drug/Non Drug Allergy documented on EMR Reaction Allergy Type Onset Date Status novacaine Unknown Drug Allergy Active Penicillin Unknown Drug Allergy Active Reason For Referral No Information Medications Medication SIG (Take, Route, Fr equency, Duration) Notes Start Date End Date Status Meloxicam 7.5 MG Oral for 30 PRN A ctive Fish Oil Active Vitamin D Active Magnesium Active Glucosamine Active Vitamin B Complex Ac tive Problems Problem Type SNOMED Code ICD Code Onset Dates Problem Status W/U Status Risk Notes Problem 226231888 Encounter for screening for malignant neoplasm of colon (Z12.11) Active confirmed Problem 532301683 History of adenomatous polyp of colon (Z86.010) Active confirmed Problem Screening for malignant neoplasm of rectum (998324697) Encounter for screening for malignant neoplasm of rectum (Z12.12) Active confirmed Problem 034152780 History of colon polyps (Z86.010) Active confirmed Problem 80398034 Constipation, unspecified constipation type (K59.00) Active confirmed Problem [id number] Pre-procedural examination (Z01.818) Active confirmed Problem Diverticulosis of colon (752370963) Diverticulosis of colon (K57.30) Active confirmed Problem History of gastrointestinal tract bypass (398243320) 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 [place] [address] [phone] [id number] OSCAR COLLIER Self - patient is the insured Medical (General) History Medical History History ICD Code Urinary incontinence Denies [place],DM,CVA,Lung disease,renal dise ase Colonoscopy with Dr. Teran at [place]--11/14 009--1 small tubular adenoma Colonoscopy 09/2016 with only a hyperplas tic polyp Hard of hearing Surgical History Surgery Date(Month/Year) Bladder suspension 1991 Cystocele/rectocele--portion of sigmoid colon removed for constipation--Dr. So 2005 Ear surgery as a child Right knee 2018
[2024-09-15 10:01] LABS: MANUAL DIFF FLAG NO
[2024-09-15 10:56] LABS: Basophils Percent Auto 0.5 % (0-2); Eosinophils Absolute Auto 0.1 X10*3/uL (0.0-0.4); Eosinophils Percent Auto 2.2 % (0-4); Hematocrit 41.9 % (37.0-47.0); Hemoglobin 14.1 g/dl (12.0-16.0); Imm Gran Abs Auto 0.01 X10*3/uL (0.00-0.03); Imm Gran Pct Auto 0.2 % (0.0-0.4); Lymphocytes Absolute Auto 1.5 X10*3/uL (1.2-4.9); Lymphocytes Percent Auto 36.3 % (20-40); Mean Corpuscular HGB Conc 33.7 g/dl (31.0-35.0); Mean Corpuscular Hemoglobin 32.4 pg (27.0-33.0); Mean Corpuscular Volume 96.3 fL (80.0-98.0); Mean Platelet Volume 9.2 fL (9.4-12.3); Monocytes Absolute Auto 0.5 X10*3/uL (0.1-1.2); Neutrophils Percent Auto 49.8 % (45-73); Platelet Count 201 X10*3/uL (160-400); Red Blood Count 4.35 X10*6/uL (4.20-5.50); Red Cell Distribution Width 12.1 % (11.0-16.0); White Blood Count 4.1 X10*3/uL (4.8-10.8)
[2024-09-15 11:01] LABS: Appearance Urine Clear; Color Urine Yellow; Glucose Urine UA Negative (Negative); Leukocyte Esterase Urine Moderate (2+) (Negative); Nitrite Urine Negative (Negative); Specific Gravity - Urine 1.025 (1.005-1.025); UMIC TRIGGER UA YES; Urine Blood Negative (Negative); Urine Ketones Negative (Negative); Urine Protein Negative (Neg-Trace)
[2024-09-15 11:12] LABS: Bacteria Urine None Seen (None Seen); Hyaline Casts Urine 0-2 /LPF (0-2); RBC Urine 0-2 /HPF (0-2); Squamous Epithelial Cell Urine 0-2 /HPF (0-2); WBC Urine 0-5 /HPF (0-5)
[2024-09-15 11:36] LABS: Alanine Aminotransferase 30 U/L (0-31); Albumin Level 4.3 g/dL (3.5-5.0); Alkaline Phosphatase 74 U/L (39-117); Anion Gap 14 (12-20); Aspartate Amino Transferase 26 U/L (5-31); Bilirubin Total 1.4 mg/dL (0.0-1.0); Blood Urea Nitrogen 14 mg/dL (9-16); Calcium 9.5 mg/dL (8.4-10.2); Carbon Dioxide 27 mmol/L (22-29); Chloride 105 mmol/L (96-108); Cholesterol 273 mg/dL (<200); Estimated Glomerular Filt Rate > 60; Glucose Fasting 88 mg/dL (60-99); HDL Cholesterol 69 mg/dL (>40); LDL Cholesterol Calculated 177 mg/dL (<100); Potassium 4.4 mmol/L (3.3-5.1); Sodium 142 mmol/L (135-145); Total Protein 7.1 g/dL (6.5-8.0); Triglycerides 135 mg/dL (<150)
[2024-09-15 11:55] LABS: Creatinine Urine 185.78 mg/dL; Microalbum/Creatinine Ratio Ur 6.4 ug/mg cr (<30)
[2024-09-15 11:57] LABS: TSH reflex Free T4 1.69 uIU/mL (0.32-4.0); Vitamin D 25-OH Total 29.6 ng/mL (>30)
[2024-09-15 12:01] LABS: Folate 12.1 ng/mL (> or = 4.0); Vitamin B12 406 pg/mL (200-900)
== END 2024-09-15 09:26 | disposition home or self-care (01) ==
LOC: HO.LAB 09:25
PROVIDERS: PCP Family Medicine; Visit Provider Family Medicine
DX: Z00.00 Encounter for general adult medical examination without abnormal findings (principal); E55.9 Vitamin D deficiency, unspecified; I10 Essential (primary) hypertension; E53.8 Deficiency of other specified B group vitamins
CPT/HCPCS: 36415; 80053; 80061; 81001; 81003; 82043; 82306; 82570; 82607; 82746; 84443; 85025

== ENCOUNTER 2024-09-21 16:06 | Outpatient (AMB) | payer MEDICARE, SELFPAY ==
--- NOTE | 2024-09-21 16:07 | MHC.PC.OV ---
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: No Is last menstrual period known: No Post menopausal: No Patient : No Allergies Penicillins Allergy (Mild, Verified 09/21/24 16:12) UNKNOWN procaine [From Novocain] Allergy (Mild, Verified 09/21/24 16:12) HIVES/SWELLING penicillin V Allergy (Unknown, Verified 09/21/24 16:12) Hives, swelling,fainting lidocaine [From Xylocaine] Allergy (Verified 09/21/24 16:12) Unconscious Novocaine Allergy (Mild, Uncoded 10/12/23 10:13) Unconscious Medication List - Last Reconciled 09/21/24 by Kilo Velasquez MD calcium carbonate-vitamin D3 600 mg-12.5 mcg (500 unit) (Calcium with Vit D3) caps PO diclofenac sodium 1% 2 grams topical QID 30 days geriatric multivitamin-min 1 tab PO DAILY magnesium 400 mg PO DAILY meloxicam 7.5 mg PO DAILY vitamin B complex (Super B-50 Complex capsule) 1 cap PO DAILY Tobacco use date assessed: 09/21/24 Fall risk assessment: No Falls in past year Last assessed Fall Risk: 09/21/24 Dental Screening Dental Screen Date: 09/21/24 Did you have a dental visit in the last 12 months?: Yes Did you have a dental problem in the last 6 months where you did not have access to dental care?: No Was dental information given to patient?: Patient has dentist HPI Annual PE HPI Details 68 y/o female presents for an extended exam with f/u labs and health maint. Labs drawn 09/15/24. Reviewed labs with pt. CBC looks fine. Triglycerides 135. TC 273. LDL 177. HDL 69. She is currently not taking anything for her cholesterol. Vitamin D low at 29.6. [facility] Medical History (Updated 09/21/24 @ 17:26 by Kilo Velasquez MD) Fibromyalgia Osteoarthritis Elevated cholesterol Surgical History History of partial hysterectomy Hx of colonoscopy History of knee surgery History of ear surgery History of bladder surgery Family History Mother Breast cancer Social History Household Members: Family Housing: House Alcohol intake: current Alcohol intake frequency: holidays/special occasions only Patient Tobacco Use Status: Never used Tobacco e-Cigarette/Vaping Use: Never Used Second Hand Smoke Exposure: No service: No Current occupational status: retired 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 1. Little interest or pleasure in doing things: several days 2. Feeling down, depressed, or hopeless: several days 3. Trouble falling or staying asleep, or sleeping too much: several days 4. Feeling tired or having little energy: several days 5. Poor appetite or overeating: not at all 6. Feeling bad about yourself - or that you are a failure or have let yourself or your family down: not at all 7. Trouble concentrating on things, such as reading the newspaper or watching television: not at all 8. Moving or speaking so slowly that other people could have noticed. Or the opposite - being so fidgety or restless that you have been moving around a lot more than usual: not at all 9. Thoughts that you would be better off or of hurting yourself in some way: not at all Total score: 4 Depression Screening Interpretation: Negative Depression Screening Done: Yes 42167 - PHQ-9 Billing: Yes Source: Developed by Drs. Cesar Lowery, Sherin Garnica, Lm Sanford and colleagues, with an educational raman from [employer]. Thrive Questionnaire Date Thrive assessed: 09/21/24 I am a: Patient What is your living situation today?: I have a steady place to live Within the past 12 months, did the food you bought not last and you didn't have the money to get more?: Never true Within the past 12 months, did you worry whether your food would run out before you got money to buy more?: Never true Do you have trouble paying for medicines?: No Do you have trouble getting transportation to medical appointments?: No Do you have trouble paying your heating and electricity bill?: No Do you have trouble taking care of your child, family member or friend?: No Do you have trouble with day-to-day activities such as bathing, preparing meals, shopping, managing finances, etc.?: No Are you currently unemployed and looking for a job?: No Are you interested in more education?: No Please select the resources that you would like help with: None Currently or been in a relationship where the following occur: No concerns reported THRIVE Score: 0 AUDIT C Alcohol Use Questionnaire (AUDIT-C) 1. How often do you have a drink containing alcohol?: 2-3 times a week 2. How many drinks containing alcohol do you have on a typical day when you are drinking?: 1 or 2 3. How often do you have six or more drinks on one occasion?: Never Total Score: 3 Score Reviewed/Action Taken: Yes RAJIV-7 AMB Questionnaire RAJIV-7 Date RAJIV - 7 assessed: 09/21/24 Feeling nervous, anxious, or on edge: 1 = Several days Not being able to stop or control worryin = Several days Worrying too much about different things: 2 = More than half the days Trouble relaxin = Not at all Being so restless that it is hard to sit still: 0 = Not at all Becoming easily annoyed or irritable: 1 = Several days Feeling afraid as if something awful might happen: 0 = Not at all Total RAJIV-7 score (0-4 normal; 5-9 mild; 10-14 moderate; 15-21 severe): 5 Source: Developed by Drs. Cesar Lowery, Sherin Garnica, Lm Sanford and colleagues, with an educational raman from [employer]. RAJIV-7 Assessment Billing RAJIV-7 Assessment Tool: RAJIV-7 Assessment 70574 Review of Systems Const Denies chills, Denies fatigue, Denies fever(s), Denies headache(s) and Denies weakness Eyes Denies change in vision ENT Denies dizziness, Denies headache(s), Denies hearing loss, Denies nasal congestion, Denies sinus pain, Denies sinus pressure and Denies sore throat Card Denies chest pain, Denies lightheadedness, Denies dyspnea and Denies other (palpitations) Resp Denies cough, Denies dyspnea and Denies wheezing GI Denies abdominal pain, Denies melena, Denies hematochezia, Denies change in bowel habits, Denies dyspepsia and Denies nausea Denies hematuria and Denies dysuria Musc Denies abnormal gait, Denies myalgias, Denies arthralgias, Denies numbness and Denies tingling Skin/Breast Denies rash, Denies unusual bruising and Denies wounds Neuro Denies abnormal gait, Denies dizziness, Denies headache(s), Denies memory loss, Denies numbness, Denies Sensory deficit (Neuro), Denies tingling and Denies weakness Psych Denies anxiety, Denies depression and Denies memory loss Endo Denies cold intolerance, Denies fatigue, Denies heat intolerance, Denies polydipsia and Denies polyuria Tao/Lymph Denies easy bleeding and Denies easy bruising Aller/Immun Denies wheezing Physical exam (Primary Care) Vital Signs: Last Vital Signs Temp 97.9 F 09/21/24 16:13 Pulse 100 09/21/24 16:13 Resp 16 09/21/24 16:13 BP 132/78 09/21/24 16:13 Pulse Ox 95 09/21/24 16:13 Oxygen Delivery Method Room Air 09/21/24 16:13 BMI result Body Mass Index 30.8 Tobacco/Smoking Status: Tobacco use Status Tobacco use date assessed 09/21/24 09/21/24 16:16 Patient Tobacco Use Status Never used Tobacco 09/21/24 16:09 e-Cigarette/Vaping Use Never Used 09/21/24 16:09 PHQ-9: PHQ-9 Score PHQ-9: Total score 4 09/21/24 16:47 Depression Screening Interpretation: Negative Thrive Assessment: Date of Thrive Assessment Date Thrive assessed 09/21/24 09/21/24 16:09 Currently or been in a relationship where the following occur: No concerns reported Const General: no acute distress, well developed, alert and awake Nutritional Appearance: well nourished Orientation/consciousness: patient oriented x3 HENMT Head: Yes normocephalic and Yes atraumatic Ears: hearing grossly normal bilaterally and TM's normal bilaterally General nose exam: Normal external nose present and Normal nares present Mouth: Normal oral and palatal mucosa present and moist mucous membranes Teeth and gingiva: dentition normal Throat: Yes posterior oropharynx normal Eyes General: appearance normal, both eyes and all related structures Pupils: Equal, round and reactive pupils present and Pupil accommodation reflex normal EOM: EOMs intact bilaterally Neck Neck: Yes normal visual inspection, Yes no lymphadenopathy and Yes trachea midline Thyroid: Thyroid normal Carotids: no bruits Lymphatic: no lymphadenopathy noted Chest Chest palpation & inspection: normal inspection of the chest Resp Effort & Inspection: normal respiratory effort Auscultation: clear to auscultation bilaterally Cardio Rate: regular rate Rhythm: regular rhythm Heart sounds: S1 normal heart sound present, S2 normal heart sound present, no gallops, no murmurs and no rubs Bruits: no abdominal aortic bruits and no carotid bruits GI Palpation (GI): No Abdominal aortic bruit present, Soft to palpation, nontender, No hepatosplenomegaly present and No Rebound tenderness present Auscultation: normal bowel sounds General: Yes no CVA tenderness Back/Spine/Pelvis Back: no CVA tenderness Cervical Spine: cervical ROM normal and No Cervical spine tenderness Thoracic/Lumbar Spine: thoraco-lumbar ROM normal, No pain with thoraco-lumbar ROM, No thoracic spinal tenderness and No lumbar spinal tenderness Skin Lesions: no lesions Rashes: no rashes Trauma: no lacerations or abrasions Wounds: no wounds Nails: normal Neuro General: patient oriented x3 Cranial nerves: Yes Equal, round and reactive pupils present Cognition (Neuro): normal cognition Gait exam (Neuro): Normal gait present Motor exam (neuro): 5/5 motor strength present throughout Sensory Exam: No Sensory deficit (Neuro) Deep tendon reflexes (DTR's): Right patellar reflex intensity grade: 2+ and Left patellar reflex intensity grade: 2+ Extrem General: Yes normal to inspection and No edema Psych Appearance: grossly normal Affect: normal affect Attitude: cooperative Thought process: Normal thought process present Coding Level of Care Code Est Pt Level 4 (65489) Diagnoses Hypercholesterolemia E78.00 Hypertension I10 Rash R21 Low vitamin D level R79.89 Left foot pain M79.672 Adult general medical exam Z00.00 Additional Codes RAJIV-7 Assessment Billing - RAJIV-7 Assessment Tool: RAJIV-7 Assessment 46628 ([id number]) PHQ-9 - 94036 - PHQ-9 Billing: Yes ([id number]) Assessment & Plan Assessment & Plan (1) Hypercholesterolemia: Code(s): E78.00 - Pure hypercholesterolemia, unspecified Category: Medical Plan: LDL?Cholesterol?level?has?been?high?and?has?increased Has?declined?statins She?will?try?Zetia.??Script?sent. We?can?recheck?labs?prior?to?next?visit (2) Hypertension: Code(s): I10 - Essential (primary) hypertension Category: Medical Plan: Blood?pressure?is?controlled.??Goal?is?less?than?140/90 Avoid?salt/sodium Work?on?weight?control?and?exercise?as?tolerated (3) Rash: Code(s): R21 - Rash and other nonspecific skin eruption Category: Medical Plan: Patient?had?had?a?rash?on?lower?legs?which?resolved?on?its?own. She?is?concerned?about?vasculitis Will?recheck?CBC?and?inflammatory/autoimmune?markers. If?rash?returns,?will?refer?to?Dermatology (4) Low vitamin D level: Code(s): R79.89 - Other specified abnormal findings of blood chemistry Category: Medical Plan: Mildly?low?vitamin-D. She?is?taking?a?multivitamin?and?vitamin-D?supplement?but?has?not?been?consistent?with?them She?will?work?on?consistency?with this. (5) Left foot pain: Code(s): M79.672 - Pain in left foot Category: Medical Plan: Ongoing?left?foot?pain. She?would?like?to?see?an?orthopedic?specialist.??Has?seen?Rheumatology?and?had?injection?therapy?without?much?improvement. Referred?to?Ortho (6) Adult general medical exam: Code(s): Z00.00 - Encounter for general adult medical examination without abnormal findings Category: Medical Plan: 68-year-old?female?presents?for?an?extended?exam Encouraged?healthy?diet?with?active?lifestyle?and?plenty?of?exercise?as?tolerated. Orders: Orders Complete Blood Count Auto Diff Today R21 - Rash and other nonspecific skin eruption, Z00.00 - Encounter for general adult medical examination without abnormal findings Comprehensive Miller. Panel Fast Today E78.00 - Pure hypercholesterolemia, unspecified, Z00.00 - Encounter for general adult medical examination without abnormal findings Lipid Panel Today E78.00 - Pure hypercholesterolemia, unspecified, Z00.00 - Encounter for general adult medical examination without abnormal findings Erythrocyte Sedimentation Rate Today R21 - Rash and other nonspecific skin eruption CRP High Sensitivity Today R21 - Rash and other nonspecific skin eruption RICARDO Reflex Titer and Pattern Today R21 - Rash and other nonspecific skin eruption Referrals Orthopedics Referral M79.672 - Pain in left foot
[2024-09-21 16:13] VITALS: BP 132/78; PULSE 100; RESP 16; TEMP 36.6; O2SAT 95; BMI 30.8
== END 2024-09-21 17:08 | disposition home or self-care (01) ==
LOC: HO.HMCFM 16:06
PROVIDERS: PCP Family Medicine; Visit Provider Family Medicine
DX: E78.00 Pure hypercholesterolemia, unspecified (principal); I10 Essential (primary) hypertension; R21 Rash and other nonspecific skin eruption; R79.89 Other specified abnormal findings of blood chemistry; M79.672 Pain in left foot; Z00.00 Encounter for general adult medical examination without abnormal findings

== ENCOUNTER → 2024-09-21 16:06 | Outpatient (BNVA) | payer MEDICARE, SELFPAY | PROVIDERS: PCP Family Medicine; Visit Provider Family Medicine | DX: Z00.00 Encounter for general adult medical examination without abnormal findings (principal); E78.00 Pure hypercholesterolemia, unspecified; I10 Essential (primary) hypertension; R21 Rash and other nonspecific skin eruption; R79.89 Other specified abnormal findings of blood chemistry; M79.672 Pain in left foot | CPT/HCPCS: 96127; 99212 ==

== ENCOUNTER 2025-02-18 09:13 | Outpatient (REF) | payer MEDICARE, SELFPAY ==
--- OUTSIDE RECORDS SUMMARY | 2025-02-18 09:16 | XMS_ITS | Patient Health Record ---
Author Organization [facility] Address [address] [place] [id number] Care Team Providers Care Manager Strategic Sourcing Name Role Phone Kilo Velasquez Primary Care Provider Unavailab Cesar Butsamante Unavailable [phone] Allergies Allergen (clinical drug ingredient) Drug/Non Drug [...] Problem Status W/U Status Risk Notes Problem 442702238 Encounter for screening for malignant neoplasm of colon (Z12.11) Active confirmed Problem 281431913 History of adenomatous polyp of colon (Z86.010) Active confirmed Problem Screening for malignant neoplasm of rectum (720614791) Encounter for screening for malignant neoplasm of rectum (Z12.12) Active confirmed Problem 240661225 History of colon polyps (Z86.010) Active confirmed Problem 86109655 Constipation, unspecified constipation type (K59.00) Active confirmed Problem [id number] Pre-procedural examination (Z01.818) Active confirmed Problem Diverticulosis of colon (810210383) Diverticulosis of colon (K57.30) Active confirmed Problem History of gastrointestinal tract bypass (475373839) Hx of Billroth II operation (Z98.0) Active confirmed Plan Of Treatment Pending Test Test Name Order Date Pathology 12/12/2022 Future Test Test Name Order Date COLONOSCOPY 06/18/2016 COLONOSCOPY 10/07/2022 Insurance Providers Payer Name Payer Address Payer Phone Subscriber Number Group Number Insured Name Patient Relationship to Insured Coverage Start Date Coverage End Date [facility] [address] [place] [phone] [id number] OSCAR COLLIER Self - patient is the insured MEDICARE OF [place] [address] [place] [address] [id number] OSCAR COLLIER Self - patient is the insured Medical (General) History Medical History History ICD Code Urinary incontinence Denies ID,DM,CVA,Lung disease,renal dise ase Colonoscopy with Dr. Teran at [facility]--11/14 009--1 small tubular adenoma Colonoscopy 09/2016 with only a hyperplas tic polyp Hard of hearing Surgical History Surgery Date(Month/Year) Bladder suspension 1991 Cystocele/rectocele--portion of sigmoid colon removed for constipation--Dr. So 2005 Ear surgery as a child Right knee 2018
[2025-02-18 09:43] LABS: MANUAL DIFF FLAG NO
[2025-02-18 11:23] LABS: Hematocrit 38.9 % (37.0-47.0); Hemoglobin 13.2 g/dl (12.0-16.0); Imm Gran Abs Auto 0.01 X10*3/uL (0.00-0.03); Imm Gran Pct Auto 0.2 % (0.0-0.4); Lymphocytes Absolute Auto 1.5 X10*3/uL (1.2-4.9); Mean Corpuscular HGB Conc 33.9 g/dl (31.0-35.0); Mean Corpuscular Hemoglobin 32.8 pg (27.0-33.0); Mean Corpuscular Volume 96.5 fL (80.0-98.0); NRBC Abs Auto 0.000 X10*3/uL (0.0-0.012); NRBC Pct Auto 0.0 /100WBC (0.0-0.2); Platelet Count 221 X10*3/uL (160-400); Red Blood Count 4.03 X10*6/uL (4.20-5.50); White Blood Count 4.4 X10*3/uL (4.8-10.8)
[2025-02-18 12:09] LABS: Alanine Aminotransferase 31 U/L (0-31); Albumin Level 4.4 g/dL (3.5-5.0); Alkaline Phosphatase 69 U/L (39-117); Anion Gap 12 (12-20); Aspartate Amino Transferase 27 U/L (5-31); Blood Urea Nitrogen 15 mg/dL (9-16); Calcium 8.9 mg/dL (8.4-10.2); Carbon Dioxide 28 mmol/L (22-29); Chloride 106 mmol/L (96-108); Cholesterol 237 mg/dL (<200); Estimated Glomerular Filt Rate > 60; HDL Cholesterol 75 mg/dL (>40); Potassium 4.2 mmol/L (3.3-5.1); Sodium 142 mmol/L (135-145); Total Protein 6.9 g/dL (6.5-8.0); Triglycerides 66 mg/dL (<150)
[2025-02-22 09:33] LABS: Anti Nuclear Antibody Pattern Nuclear, Homogeneous; Anti Nuclear Antibody Screen POSITIVE (NEGATIVE); Anti Nuclear Antibody Titer 1:80 titer
== END 2025-02-18 09:14 | disposition home or self-care (01) ==
LOC: HO.LAB 09:13
PROVIDERS: PCP Family Medicine; Visit Provider Family Medicine
DX: Z00.00 Encounter for general adult medical examination without abnormal findings (principal); E78.00 Pure hypercholesterolemia, unspecified; R21 Rash and other nonspecific skin eruption
CPT/HCPCS: 36415; 80053; 80061; 81003; 85025; 85652; 86038; 86039; 86141

== ENCOUNTER → 2025-03-30 12:15 | Outpatient (BNV) | payer MEDICARE, SELFPAY | PROVIDERS: PCP Family Medicine; Visit Provider Radiology Body Imaging | DX: Z12.31 Encounter for screening mammogram for malignant neoplasm of breast (principal) | CPT/HCPCS: 77063; 77067 ==

== ENCOUNTER 2025-03-30 12:19 | Outpatient (REF) | payer MEDICARE, SELFPAY ==
--- OUTSIDE RECORDS SUMMARY | 2025-03-30 15:31 | XMS_ITS | Patient Health Record ---
Author Organization [facility] Address [address] [place] [id number] Care Team Providers Care Charting Clerk Name Role Phone Kilo Velasquez Primary Care Provider Unavailab Cesar Bustamante Unavailable [phone] Allergies Allergen (clinical drug ingredient) Drug/Non Drug Allergy documented on EMR Reaction Allergy Type Onset Date Status novacaine Unknown Drug Allergy Active Penicillin Unknown Drug Allergy Active Reason For Referral No Information Medications Medication SIG (Take, Route, Fr equency, Duration) Notes Start Date End Date Status Meloxicam 7.5 MG Oral; Duration: 30 PRN Active Fish Oil Active Vitamin D Active Magnesium Active Glucosamine Active Vitamin B Complex Ac tive Problems Problem Type SNOMED Code ICD Code Onset Dates Problem Status W/U Status Risk Notes Problem Screening for malignant neoplasm of colon (182453902) Encounter for screening for malignant neoplasm of colon (Z12.11) Active confirmed Problem History of adenomatous polyp of colon (638333136) History of adenomatous polyp of colon (Z86.010) Active confirmed Problem Screening for malignant neoplasm of rectum (368665778) Encounter for screening for malignant neoplasm of rectum (Z12.12) Active confirmed Problem History of polyp of colon (situation) (610946186) History of colon polyps (Z86.010) Active confirmed Problem Constipation (29100856) Constipation, unspecified constipation type (K59.00) Active confirmed Problem Pre-procedure evaluation check (457807887) Pre-procedural examination (Z01.818) Active confirmed Problem Diverticulosis of colon (764445175) Diverticulosis of colon (K57.30) Active confirmed Problem History of gastrointestinal tract bypass (367635883) Hx of Billroth II operation (Z98.0) Active confirmed Plan Of Treatment Pending Test Test Name Order Date Pathology 12/12/2022 Future Test Test Name Order Date COLONOSCOPY 06/18/2016 COLONOSCOPY 10/07/2022 Insurance Providers Payer Name Payer Address Payer Phone Subscriber Number Group Number Insured Name Patient Relationship to Insured Coverage Start Date Coverage End Date [facility] [address] [place] [phone] [id number] OSCAR COLLIER Self - patient is the insured MEDICARE OF [place] [address] [place], [place] [id number] [phone] [id number] OSCAR COLLIER Self - patient is the insured Medical (General) History Medical History History ICD Code Urinary incontinence Denies ID,DM,CVA,Lung disease,renal dise ase Colonoscopy with Dr. Teran at [facility]--11/14 009--1 small tubular adenoma Colonoscopy 09/2016 with only a hyperplas tic polyp Hard of hearing Surgical History Surgery Date(Month/Year) Bladder suspension 1991 Cystocele/rectocele--portion of sigmoid colon removed for constipation--Dr. So 2005 Ear surgery as a child Right knee 2018
== END 2025-03-30 12:20 | disposition home or self-care (01) ==
LOC: HO.MAMMO 12:19
PROVIDERS: PCP Family Medicine; Visit Provider Family Medicine
DX: Z12.31 Encounter for screening mammogram for malignant neoplasm of breast (principal)
CPT/HCPCS: 77063; 77067

== ENCOUNTER → 2025-05-02 14:00 | Outpatient (BNV) | payer MEDICARE, SELFPAY | PROVIDERS: PCP Family Medicine; Visit Provider Radiology Body Imaging | DX: R92.8 Other abnormal and inconclusive findings on diagnostic imaging of breast (principal) | CPT/HCPCS: 76642; 77065; G0279 ==

== ENCOUNTER 2025-05-02 14:04 | Outpatient (REF) | payer MEDICARE, SELFPAY ==
--- NOTE | ~2025-05-02 | MM_ITS ---
EXAMINATION(S): 1. MM DIAGNOSTIC DIGITAL BREAST TOMOSYNTHESIS, RIGHT 2. TARGETED ULTRASOUND OF THE RIGHT BREAST CLINICAL INFORMATION: Callback from screening for right breast focal asymmetry in the upper outer quadrant posterior depth. No personal history of local trauma in the right breast. COMPARISON: Screening mammogram on March 30, 2025. TECHNIQUE: Digital breast tomosynthesis is performed in full field ML 90 degrees along with computer-aided detection (CAD). Synthesized 2D images are generated from the tomosynthesis. FINDINGS: BREAST COMPOSITION: There are scattered areas of fibroglandular density. RIGHT BREAST: Previously suggested focal asymmetry in the upper outer quadrant posterior depth at approximately 9 cm from the nipple persists with spot compression. Targeted ultrasound of the right breast was performed at the location of the mammographic finding. The survey shows an ill-defined bandlike heterogeneous hypoechoic area in the upper outer quadrant centered at approximately 10 o'clock position at 14 cm from the nipple. Unclear if the sonographic finding correlates with the mammographic finding. MM/MM tomosynthesis added views R IMPRESSION: RIGHT BREAST: Focal asymmetry in the upper outer quadrant posterior depth, probably correlating with an ill-defined hypoechoic bandlike area on the ultrasound at 10 o'clock position. Probably benign. A 6-month mammogram and ultrasound are recommended. ASSESSMENT: BI-RADS: Category 3: Probably benign RECOMMENDATION: 6 Month F/U Results were provided to the patient at time of visit by the technologist. This patient's information was entered into a reminder system with a target due date for their next mammogram. Electronically signed by: Reed Goodman MD 05/02/2025 04:27 PM JONATHAN BROOKS
--- OUTSIDE RECORDS SUMMARY | 2025-05-03 08:32 | XMS_ITS | Patient Health Record ---
Author Organization [facility] Address [address] [place] [phone] Care Team Providers Care Disabilities Caregiver Name Role Phone Kilo Velasquze Primary Care Provider Unavailab Cesar Bustamante Unavailable [phone] Allergies Allergen (clinical drug ingredient) Drug/Non Drug Allergy documented on EMR Reaction Allergy Type Onset Date Status Penicillin Unknown Drug Allergy Active novacaine Unknown Drug Allergy Active Reason For Referral No Information Medications Medication SIG (Take, Route, Fr equency, Duration) Notes Start Date End Date Status Meloxicam 7.5 MG Tablet Oral; Duration: 30 PRN Active Fish Oil Active Vitamin D Active Magnesium Active Glucosamine Active Vitamin B Complex Ac tive Social History Social History Additional Details Category Social Info Options Details Miscellaneous: Marital status: 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--[employer] Notes: Nonsmoker; 1 glass of wine w ith dinner Nonsmoker; 1 glass of wine w ith dinner Problems Problem Type SNOMED Code ICD Code Onset Dates Problem Status W/U Status Risk Notes Problem Screening for malignant neoplasm of colon (631074192) Encounter for screening for malignant neoplasm of colon (Z12.11) Active confirmed Problem History of adenomatous polyp of colon (009499630) History of adenomatous polyp of colon (Z86.010) Active confirmed Problem Screening for malignant neoplasm of rectum (536386336) Encounter for screening for malignant neoplasm of rectum (Z12.12) Active confirmed Problem History of polyp of colon (situation) (515929294) History of colon polyps (Z86.010) Active confirmed Problem Constipation (65041541) Constipation, unspecified constipation type (K59.00) Active confirmed Problem Pre-procedure evaluation check (658532965) Pre-procedural examination (Z01.818) Active confirmed Problem Diverticulosis of colon (576326308) Diverticulosis of colon (K57.30) Active confirmed Problem History of gastrointestinal tract bypass (548581843) Hx of Billroth II operation (Z98.0) Active confirmed Plan Of Treatment Pending Test Test Name Order Date Pathology 12/12/2022 Future Test Test Name Order Date COLONOSCOPY 06/18/2016 COLONOSCOPY 10/07/2022 Insurance Providers Payer Name Payer Address Payer Phone Subscriber Number Group Number Insured Name Patient Relationship to Insured Coverage Start Date Coverage End Date [facility] [address] [place] [address] [id number] OSCAR COLLIER Self - patient is the insured MEDICARE OF [place] [address] [place] [id number] OSCAR COLLIER Self - patient is the insured Medical (General) History Medical History History ICD Code Urinary incontinence Denies VT,DM,CVA,Lung disease,renal dise ase Colonoscopy with Dr. Teran at [facility]--11/14 009--1 small tubular adenoma Colonoscopy 09/2016 with only a hyperplas tic polyp Hard of hearing Surgical History Surgery Date(Month/Year) Bladder suspension 1991 Cystocele/rectocele--portion of sigmoid colon removed for constipation--Dr. So 2005 Ear surgery as a child Right knee 2018
== END 2025-05-02 14:05 | disposition home or self-care (01) ==
LOC: HO.MAMMO 14:04
PROVIDERS: PCP Family Medicine; Visit Provider Family Medicine
DX: N64.89 Other specified disorders of breast (principal)
CPT/HCPCS: 76642; 77061; 77065